=== PATIENT | female | born 1945 | race Caucasian/White ===

== ENCOUNTER 2017-06-24 18:03 | Inpatient (IN) | payer MEDICAID ==
[2017-06-24] MEDS ORDERED: Sodium Chloride 0.9% 1,000 ML IV ONE (19:08)
--- NOTE | 2017-06-24 19:15 | C.PDOC ---
History Of Present Illness Patient is a 71 y/o female who presents to the ED with son complaining of dysuria for the last 1 week with onset of fever and chills. Patient reports to have seen a doctor today and was started on levoquil; fever persisted and patient admitted to feeling weak, prompting visit. Denies any CP, SOB, or diarrhea. Patient took a single dose of levoquin today. No other physical complaints at this time. Time Seen by Provider: 06/24/17 18:54 Chief Complaint (Nursing): Fever History Per: Patient History/Exam Limitations: no limitations Onset/Duration Of Symptoms: Days (1 week) Current Symptoms Are (Timing): Still Present Associated Symptoms: Fever, Chills Recent travel outside of the [place]: No Past Medical History Reviewed: Historical Data, Nursing Documentation, Vital Signs Vital Signs: Last Vital Signs Temp 98.8 F 06/24/17 22:55 Pulse 109 H 06/24/17 22:55 Resp 20 06/24/17 22:55 BP 131/75 06/24/17 22:55 Pulse Ox 93 L 06/24/17 22:55 - Medical History PMH: HTN, Hypercholesterolemia Surgical History: No Surg Hx Family History: States: No Known Family Hx - Social History Hx Tobacco Use: No Hx Alcohol Use: No Hx Substance Use: No - Immunization History Hx Tetanus Toxoid Vaccination: No Hx Influenza Vaccination: No Hx Pneumococcal Vaccination: No Review Of Systems Constitutional: Positive for: Fever, Chills Cardiovascular: Negative for: Chest Pain Respiratory: Negative for: Shortness of Breath Gastrointestinal: Negative for: Diarrhea Genitourinary: Positive for: Dysuria Physical Exam - Physical Exam Appears: Well, Non-toxic, No Acute Distress Skin: Normal Color, Warm, Dry Head: Atraumatic, Normacephalic Oral Mucosa: Moist Chest: Symmetrical Cardiovascular: Rhythm Regular, No Murmur Respiratory: Normal Breath Sounds, No Rales, No Rhonchi, No Wheezing Gastrointestinal/Abdominal: Soft, No Tenderness Back: Normal Inspection, No CVA Tenderness Neurological/Psych: Oriented x3, Normal Speech, Normal Cognition ED Course And Treatment - Laboratory Results Result Diagrams: 06/24/17 19:30 06/24/17 19:30 ECG: Interpreted By Me, Viewed By Me ECG Rhythm: Sinus Tachycardia Interpretation Of ECG: normal intervals, normal axis, no st/t wave abnormalities Rate From EC (bpm) O2 Sat by Pulse Oximetry: 95 Progress Note: EKG, CXR, UA, urine culture, and blood work ordered. Tylenol, zofran, rocephin, and IV fluids administered. Medical Decision Making Medical Decision Making: Patient assessment: UTI with fever. CXR shows increased right interstitial marking in right middle lobe; questionable pneumonia. Case discussed with Dr. Islas who agrees to admit patient to medical surgeon for UTI and pneumonia. Disposition Discussed With : Kyle Islas Doctor Will See Patient In The: Hospital Counseled Patient/Family Regarding: Studies Performed, Diagnosis - Disposition Disposition: HOSPITALIZED Disposition Time: 20:49 Condition: FAIR - Clinical Impression Clinical Impression: Pneumonia, UTI (urinary tract infection) - Scribe Statement The provider has reviewed the documentation as recorded by the Scribe Yael Elizabeth All medical record entries made by the Scribe were at my direction and personally dictated by me. I have reviewed the chart and agree that the record accurately reflects my personal performance of the history, physical exam, medical decision making, and the department course for this patient. I have also personally directed, reviewed, and agree with the discharge instructions and disposition.
[2017-06-24 19:34] LABS: BASO % 0.2 % (0.0-2.0); EOS % 0.1 % (0.0-4.0); HEMOGLOBIN 10.8 g/dL (11.0-16.0); LYMPH # 0.7 K/uL (1.0-4.3); LYMPH % 4.4 % (20.0-40.0); MEAN CELL VOLUME 90.4 fL (81.0-99.0); MEAN CORPUSCULAR HEMOGLOBIN 30.3 pg (27.0-31.0); MEAN CORPUSCULAR HGB CONC 33.6 g/dL (33.0-37.0); MEAN PLATELET VOLUME 10.9 fL (7.2-11.7); MONO # 0.8 K/uL (0.0-0.8); MONO % 5.3 % (0.0-10.0); NEUT # 13.9 K/uL (1.8-7.0); PLATELET COUNT 231 K/uL (130-400); RBC 3.55 Mil/uL (3.80-5.20); RED CELL DISTRIBUTION WIDTH 14.5 % (11.5-14.5); WHITE BLOOD COUNT 15.5 K/uL (4.8-10.8)
[2017-06-24] MEDS ORDERED: cefTRIAXone IV 1 gm in Dextros 50 ML IVPB ONE (19:37)
[2017-06-24] MEDS ORDERED: Sodium Chloride 0.9% 1,000 ML ONE (19:38)
[2017-06-24 19:45] LABS: INR 1.3; PROTHROMBIN TIME 14.8 SECONDS (9.7-12.2)
[2017-06-24 20:10] LABS: ALBUMIN 3.6 g/dL (3.5-5.0); CALCIUM 9.1 mg/dl (8.6-10.4)
[2017-06-24 20:17] LABS: SQUAMOUS EPITHIAL 2 /hpf (0-5); URINE BACTERIA RARE (<OCC); URINE BILIRUBIN NEGATIVE (NEGATIVE); URINE BLOOD 1+ (NEGATIVE); URINE CLARITY Hazy (Clear); URINE COLOR Yellow (YELLOW); URINE GLUCOSE (UA) NORMAL (Normal); URINE LEUKOCYTE ESTERASE 3+ Leu/uL (Negative); URINE PROTEIN 2+ mg/dL (NEGATIVE); URINE UROBILINOGEN NORMAL mg/dL (0.2-1.0)
[2017-06-24] MEDS ORDERED: Azithromycin 500 MG in Sodium Chloride 0.9% 250 ML IVPB STA (20:47)
[2017-06-24 20:49] LABS: BANDS 13 % (0-2); EOSINOPHIL 1 % (0-4); LYMPHOCYTE 11 % (20-40); MONOCYTE 1 % (0-10); NEUTROPHIL 74 % (50-75); TOTAL CELLS COUNTED 100
[2017-06-24 20:50] LABS: ANISOCYTOSIS SLIGHT; HYPOCHROMIC SLIGHT; PLATELET ESTIMATE NORMAL (NORMAL); POIKILOCYTOSIS SLIGHT
[2017-06-24] MEDS ORDERED: Azithromycin 500mg/250ML NS 500 MG/250 ML BAG IVPB ONE (21:01)
[2017-06-24 21:02] LABS: VENOUS BLOOD GAS BASE EXCESS -0.8 mmol/L (0.0-2.0); VENOUS BLOOD GAS PCO2 41 mmHg (40-60); VENOUS BLOOD GAS PO2 38 mm/Hg (30-55); VENOUS BLOOD PH 7.38 (7.32-7.43)
--- NOTE | 2017-06-24 23:06 | CP.PCM.PCO ---
Physician Communication Note - Physician Communication Note Physician Communication Note: Accepted under my service, and transferred to Hospitalist due to NH Jazlyn.
[2017-06-25] MEDS ORDERED: Dextrose 50% SYRINGE Inj (50 ml) IV PRN (00:36)
[2017-06-25] MEDS ORDERED: Glucagon Recombinant 1 mg Inj IM PRN (00:36)
[2017-06-25] MEDS ORDERED: Tetrahydrozoline Opht 0.05% Sol (15 ml) OD PRN (00:42)
--- NOTE | 2017-06-25 00:55 | CP.PCM.HP ---
Addendum entered and electronically signed by Nitin Kramer 06/25/17 03:04: Update to HPI: FamHx: Father - CVA; Mother - DM2, Sister - DM2, Son - DM2 SocialHx: 30 year hx of second hand smoke ( was a smoker), denies alcohol or illicit drug use, lives at home with son Updated to A/P: (1) UTI (urinary tract infection) Assessment and Plan: Dysuria, fever, chills, for past 1 week Initial vitals: temp 103, CA 129 - positive for SIRS with source of infx -> sepsis Monitor on telemetry Labs/Diagnostics: Leukocytosis with bandemia, lactate NORMAL, pH NORMAL UA: 2+ protein, 1+ blood, 3+ leuk esterase, 101 wbc, 10 rbc F/U Blood Cx, Urine Cx F/U procalcitonin Meds: Azithromycin 500mg IVP QD Ceftriaxone 1g IVP QD Phenazopyridine 100mg PO PC Zofran 4mg IVP Q6H PRN for n/v NS @ 100cc/hr Status: Acute Priority: High (2) Pneumonia Assessment and Plan: Denies shortness of breath, chest pain, sputum production, sore throat Lung exam NORMAL Chronic dry cough Weak suspicion for pneumonia at this point Labs/Diagnostics: Leukocytosis with bandemia, lactate NORMAL, pH NORMAL F/U procalcitonin F/U EKG, SYLVIA panel, Blood Cx Imaging: CXR: pending official read * ER attending suspects infiltrate in right middle lobe * Will order CT chest depending on official read Meds: Azithromycin 500mg IVP QD Ceftriaxone 1g IVP QD Status: Acute Priority: High (3) NSTEMI Assessment and Plan: No chest pain or shortness of breath Cardiology consult, Dr Reed. Will follow recs. Labs/Diagnostics: Troponin ELEVATED 0.1290 EKG - NSR without any abnormality F/U serial SYLVIA, EKGs, Lipid Panel, TSH/Free T4 Imaging: F/U ECHO Meds: ASA 324mg PO STAT Plavix 300mg PO STAT Lovenox 90mg SC STAT Crestor 10mg PO STAT Status: Acute Priority: High (4) Insulin dependent diabetes mellitus Assessment and Plan: With diabetic retinopathy with recent left eye retinal surgery Renal function good Accuchcecks ACHS Labs/Diagnostics: F/U HgbA1c, Lipid Panel Meds: Continue home insulin regimen Glargine 10u HS and Glargine 22u AM (confirmed with pharmacy that this is not an unusual scheduling) HOLD home metformin 850mg PO BID Hypoglycemia protocol RISS - medium dose Visine for dry eyes 2/2 to recent eye surgery Status: Chronic Priority: High (5) HTN (hypertension) Assessment and Plan: Continue home med captopril/HCTZ 50/25mg PO QD (substitute with in house enalapril 10mg) Status: Chronic Priority: Medium (6) Anemia Assessment and Plan: Normocytic anemia 2/2 ? UA: 1+ blood Labs/Diagnostics Hgb on admission: 10.8 F/U Iron Studies Status: Acute Priority: High (7) Prophylactic measure Assessment and Plan: Consistent carb vegan diet SCDs Lovenox 90mg SC given ONCE GI prophylaxis not indicated Continue home med ASA 81mg PO QD Status: Acute Priority: Low Original Note: <Nitin Kramer - Last Filed: 06/25/17 00:50> History of Present Illness - History of Present Illness History of Present Illness: CC: "I have a UTI" HPI: Mrs Pascal is a 72 year old egyption female with a past medical history of insulin dependent DM2, diabetic retinopathy, glaucoma, HTN, OA, who presents to [facility] ER because she's had dysuria for the past 1 week. Associated symptoms include nausea, lethargy, fever, chills, and loss of appetite. She went to a doctor yesterday morning who prescribed her abx, which she took. However, later in the day her sons were concerned as she was very weak and brought her in to [facility] ER. Initial vitals in the ED were confirmatory for sepsis. She denied chest pain, shortness of breath, diarrhea, focal deficits, bleeding, suprapubic pain, abdominal pain. PMD: Dr Jose Marcos ([place]) PMHx: Insulin dependent DM2, diabetic retinopathy, glaucoma, HTN, OA b/l knees PSHx: Cataracts surgery left eye 2018, retinal surgery left eye 2018 Allergies: NKA Home meds: Glargine 10u SQ HS, Glargine 22u SQ QD, Captopril/HCTZ 50/25mg PO QD , ASA 81mg PO QD, MV 1 tab PO QD, Vit B12 500mcg PO QD, Diclofenac 75mg PO BID Code Status: Full Code Health Care Proxy: SonDenis, Present on Admission - Present on Admission Any Indicators Present on Admission: No Review of Systems - Constitutional Constitutional: Chills, Fever, Headache, Weakness. absent: Night Sweats, Weight Loss - EENT Eyes: absent: Change in Vision - Cardiovascular Cardiovascular: absent: Chest Pain, Chest Pain at Rest, Diaphoresis, Dyspnea on Exertion, Lightheadedness, Pedal Edema - Respiratory Respiratory: absent: Cough, Hemoptysis, Dyspnea on Exertion, Wheezing - Gastrointestinal Gastrointestinal: absent: Abdominal Pain, Bloating, Constipation, Diarrhea - Genitourinary Genitourinary: Change in Urinary Stream, Dysuria, Hematuria, Urinary Frequency. absent: Flank Pain - Musculoskeletal Musculoskeletal: absent: Arthralgias - Neurological Neurological: absent: Confusion Past Patient History - Past Social History Smoking Status: Never Smoked - CARDIAC Hx Hypercholesterolemia: Yes Hx Hypertension: Yes - ENDOCRINE/METABOLIC Hx Diabetes Mellitus Type 2: Yes - PSYCHIATRIC Hx Substance Use: No - SURGICAL HISTORY Hx Surgeries: No Meds Allergies/Adverse Reactions: Allergies Allergy/AdvReac Type Severity Reaction Status Date / Time No Known Allergies Allergy Unverified 06/24/17 18:13 Physical Exam - Constitutional Appears: Well, No Acute Distress Additional comments: Patient was cold and wanted to stay underneath the blanket - Head Exam Head Exam: ATRAUMATIC, NORMAL INSPECTION - Eye Exam Eye Exam: EOMI Pupil Exam: PERRL - ENT Exam ENT Exam: Mucous Membranes Moist - Neck Exam Neck exam: Positive for: Normal Inspection. Negative for: Lymphadenopathy, Tenderness - Respiratory Exam Respiratory Exam: Clear to Auscultation Bilateral, NORMAL BREATHING PATTERN. absent: Rales, Rhonchi, Wheezes - Cardiovascular Exam Cardiovascular Exam: REGULAR RHYTHM, +S1, +S2. absent: Bradycardia, Tachycardia , JVD, Systolic Murmur - GI/Abdominal Exam GI & Abdominal Exam: Normal Bowel Sounds, Soft. absent: Distended, Firm, Guarding, Hernia, Tenderness - Extremities Exam Extremities exam: Positive for: normal capillary refill, normal inspection, pedal pulses present. Negative for: calf tenderness, pedal edema, tenderness - Back Exam Back exam: absent: CVA tenderness (L), CVA tenderness (R) - Neurological Exam Neurological exam: Alert, Oriented x3 - Skin Skin Exam: Intact, Normal Color, Warm Results - Vital Signs Recent Vital Signs: Last Vital Signs Temp 98.2 F 06/24/17 23:32 Pulse 111 H 06/24/17 23:32 Resp 20 06/24/17 23:32 BP 122/74 06/24/17 23:32 Pulse Ox 98 06/24/17 23:32 - Labs Result Diagrams: 06/24/17 19:30 06/24/17 19:30 Labs: Laboratory Results - last 24 hr 06/24/17 06/24/17 06/24/17 19:30 19:30 19:30 WBC 15.5 H RBC 3.55 L Hgb 10.8 L Hct 32.1 L MCV 90.4 MCH 30.3 MCHC 33.6 RDW 14.5 Plt Count 231 MPV 10.9 Neut % (Auto) 90.0 H Lymph % (Auto) 4.4 L [place] % (Auto) 5.3 Eos % (Auto) 0.1 Baso % (Auto) 0.2 Neut # (Auto) 13.9 H Lymph # (Auto) 0.7 L [place] # (Auto) 0.8 Eos # (Auto) 0.0 Baso # (Auto) 0.0 Neutrophils % (Manual) 74 Band Neutrophils % 13 H* Lymphocytes % (Manual) 11 L Monocytes % (Manual) 1 Eosinophils % (Manual) 1 Platelet Estimate Normal Hypochromasia (manual) Slight Poikilocytosis (manual Slight Anisocytosis (manual) Slight PT 14.8 H INR 1.3 APTT 27 pO2 VBG pH VBG pCO2 VBG HCO3 VBG Total CO2 VBG O2 Sat (Calc) VBG Base Excess VBG Potassium Glucose Lactate Sodium 135 Potassium 4.2 Chloride 97 L Carbon Dioxide 26 Anion Gap 16 BUN 17 Creatinine 1.1 Est GFR ( Amer) 59 Est GFR (Non-Af Amer) 49 Random Glucose 153 H Calcium 9.1 Total Bilirubin 1.4 H AST 38 H ALT 22 Alkaline Phosphatase 94 Total Protein 7.3 Albumin 3.6 Globulin 3.6 Albumin/Globulin Ratio 1.0 Venous Blood Potassium Urine Color Urine Clarity Urine pH Ur Specific [place] Urine Protein Urine Glucose (UA) Urine Ketones Urine Blood Urine Nitrate Urine Bilirubin Urine Urobilinogen Ur Leukocyte Esterase Urine WBC (Auto) Urine RBC (Auto) Ur Squamous Epith Cells Urine Bacteria Urine Yeast (Budding) 06/24/17 06/24/17 19:31 20:59 WBC RBC Hgb Hct MCV MCH MCHC RDW Plt Count MPV Neut % (Auto) Lymph % (Auto) [place] % (Auto) Eos % (Auto) Baso % (Auto) Neut # (Auto) Lymph # (Auto) [place] # (Auto) Eos # (Auto) Baso # (Auto) Neutrophils % (Manual) Band Neutrophils % Lymphocytes % (Manual) Monocytes % (Manual) Eosinophils % (Manual) Platelet Estimate Hypochromasia (manual) Poikilocytosis (manual Anisocytosis (manual) PT INR APTT pO2 38 VBG pH 7.38 VBG pCO2 41 VBG HCO3 23.6 VBG Total CO2 25.6 VBG O2 Sat (Calc) 78.2 H VBG Base Excess -0.8 L VBG Potassium 3.4 L Glucose 169 H Lactate 1.8 Sodium 134.0 Potassium Chloride 103.0 Carbon Dioxide Anion Gap BUN Creatinine Est GFR ( Amer) Est GFR (Non-Af Amer) Random Glucose Calcium Total Bilirubin AST ALT Alkaline Phosphatase Total Protein Albumin Globulin Albumin/Globulin Ratio Venous Blood Potassium 3.4 L Urine Color Yellow Urine Clarity Hazy Urine pH 7.0 Ur Specific [place] 1.008 Urine Protein 2+ H Urine Glucose (UA) Normal Urine Ketones Negative Urine Blood 1+ H Urine Nitrate Negative Urine Bilirubin Negative Urine Urobilinogen Normal Ur Leukocyte Esterase 3+ H Urine WBC (Auto) 101 H Urine RBC (Auto) 10 H Ur Squamous Epith Cells 2 Urine Bacteria Rare Urine Yeast (Budding) Occ H Assessment & Plan (1) UTI (urinary tract infection) Assessment and Plan: Dysuria, fever, chills, for past 1 week Initial vitals: temp 103, CA 129 - positive for SIRS with source of infx -> sepsis Monitor on telemetry Labs/Diagnostics: Leukocytosis with bandemia, lactate NORMAL, pH NORMAL UA: 2+ protein, 1+ blood, 3+ leuk esterase, 101 wbc, 10 rbc F/U Blood Cx, Urine Cx F/U procalcitonin Meds: Azithromycin 500mg IVP QD Ceftriaxone 1g IVP QD Phenazopyridine 100mg PO PC Zofran 4mg IVP Q6H PRN for n/v NS @ 100cc/hr Status: Acute Priority: High (2) Pneumonia Assessment and Plan: Denies shortness of breath, chest pain, sputum production, sore throat Lung exam NORMAL Chronic dry cough Weak suspicion for pneumonia at this point Labs/Diagnostics: Leukocytosis with bandemia, lactate NORMAL, pH NORMAL F/U procalcitonin F/U EKG, SYLVIA panel, Blood Cx Imaging: CXR: pending official read * ER attending suspects infiltrate in right middle lobe * Will order CT chest depending on official read Meds: Azithromycin 500mg IVP QD Ceftriaxone 1g IVP QD Status: Acute Priority: High (3) Insulin dependent diabetes mellitus Assessment and Plan: With diabetic retinopathy with recent left eye retinal surgery Renal function good Accuchcecks ACHS Labs/Diagnostics: F/U HgbA1c, Lipid Panel Meds: Continue home insulin regimen Glargine 10u HS and Glargine 22u AM (confirmed with pharmacy that this is not an unusual scheduling) HOLD home metformin 850mg PO BID Hypoglycemia protocol RISS - medium dose Visine for dry eyes 2/2 to recent eye surgery Status: Chronic Priority: High (4) HTN (hypertension) Assessment and Plan: Continue home med captopril/HCTZ 50/25mg PO QD (substitute with in house enalapril 10mg) Status: Chronic Priority: Medium (5) Prophylactic measure Assessment and Plan: Consistent carb vegan diet SCDs AO contraindicated 2/2 to 1+ blood on UA GI prophylaxis not indicated Continue home med ASA 81mg PO QD Status: Acute Priority: Low <Clive Beckham - Last Filed: 06/25/17 06:29> Results - Vital Signs Recent Vital Signs: Last Vital Signs Temp 97.3 F L 06/25/17 04:00 Pulse 94 H 06/25/17 04:00 Resp 20 06/25/17 04:00 BP 158/77 H 06/25/17 04:00 Pulse Ox 96 06/25/17 04:00 - Labs Result Diagrams: 06/24/17 19:30 06/24/17 19:30 Labs: Laboratory Results - last 24 hr 06/24/17 06/24/17 06/24/17 19:30 19:30 19:30 WBC 15.5 H RBC 3.55 L Hgb 10.8 L Hct 32.1 L MCV 90.4 MCH 30.3 MCHC 33.6 RDW 14.5 Plt Count 231 MPV 10.9 Neut % (Auto) 90.0 H Lymph % (Auto) 4.4 L [place] % (Auto) 5.3 Eos % (Auto) 0.1 Baso % (Auto) 0.2 Neut # (Auto) 13.9 H Lymph # (Auto) 0.7 L [place] # (Auto) 0.8 Eos # (Auto) 0.0 Baso # (Auto) 0.0 Neutrophils % (Manual) 74 Band Neutrophils % 13 H* Lymphocytes % (Manual) 11 L Monocytes % (Manual) 1 Eosinophils % (Manual) 1 Platelet Estimate Normal Hypochromasia (manual) Slight Poikilocytosis (manual Slight Anisocytosis (manual) Slight PT 14.8 H INR 1.3 APTT 27 pO2 VBG pH VBG pCO2 VBG HCO3 VBG Total CO2 VBG O2 Sat (Calc) VBG Base Excess VBG Potassium Glucose Lactate Sodium 135 Potassium 4.2 Chloride 97 L Carbon Dioxide 26 Anion Gap 16 BUN 17 Creatinine 1.1 Est GFR ( Amer) 59 Est GFR (Non-Af Amer) 49 POC Glucose (mg/dL) Random Glucose 153 H Calcium 9.1 Total Bilirubin 1.4 H AST 38 H ALT 22 Alkaline Phosphatase 94 Total Creatine Kinase CK-MB (Mass) Troponin I Total Protein 7.3 Albumin 3.6 Globulin 3.6 Albumin/Globulin Ratio 1.0 Venous Blood Potassium Urine Color Urine Clarity Urine pH Ur Specific [place] Urine Protein Urine Glucose (UA) Urine Ketones Urine Blood Urine Nitrate Urine Bilirubin Urine Urobilinogen Ur Leukocyte Esterase Urine WBC (Auto) Urine RBC (Auto) Ur Squamous Epith Cells Urine Bacteria Urine Yeast (Budding) 06/24/17 06/24/17 06/25/17 19:31 20:59 01:01 WBC RBC Hgb Hct MCV MCH MCHC RDW Plt Count MPV Neut % (Auto) Lymph % (Auto) [place] % (Auto) Eos % (Auto) Baso % (Auto) Neut # (Auto) Lymph # (Auto) [place] # (Auto) Eos # (Auto) Baso # (Auto) Neutrophils % (Manual) Band Neutrophils % Lymphocytes % (Manual) Monocytes % (Manual) Eosinophils % (Manual) Platelet Estimate Hypochromasia (manual) Poikilocytosis (manual Anisocytosis (manual) PT INR APTT pO2 38 VBG pH 7.38 VBG pCO2 41 VBG HCO3 23.6 VBG Total CO2 25.6 VBG O2 Sat (Calc) 78.2 H VBG Base Excess -0.8 L VBG Potassium 3.4 L Glucose 169 H Lactate 1.8 Sodium 134.0 Potassium Chloride 103.0 Carbon Dioxide Anion Gap BUN Creatinine Est GFR ( Amer) Est GFR (Non-Af Amer) POC Glucose (mg/dL) Random Glucose Calcium Total Bilirubin AST ALT Alkaline Phosphatase Total Creatine Kinase 277 H CK-MB (Mass) 4.19 H Troponin I 0.1290 H* Total Protein Albumin Globulin Albumin/Globulin Ratio Venous Blood Potassium 3.4 L Urine Color Yellow Urine Clarity Hazy Urine pH 7.0 Ur Specific [place] 1.008 Urine Protein 2+ H Urine Glucose (UA) Normal Urine Ketones Negative Urine Blood 1+ H Urine Nitrate Negative Urine Bilirubin Negative Urine Urobilinogen Normal Ur Leukocyte Esterase 3+ H Urine WBC (Auto) 101 H Urine RBC (Auto) 10 H Ur Squamous Epith Cells 2 Urine Bacteria Rare Urine Yeast (Budding) Occ H 06/25/17 06:16 WBC RBC Hgb Hct MCV MCH MCHC RDW Plt Count MPV Neut % (Auto) Lymph % (Auto) [place] % (Auto) Eos % (Auto) Baso % (Auto) Neut # (Auto) Lymph # (Auto) [place] # (Auto) Eos # (Auto) Baso # (Auto) Neutrophils % (Manual) Band Neutrophils % Lymphocytes % (Manual) Monocytes % (Manual) Eosinophils % (Manual) Platelet Estimate Hypochromasia (manual) Poikilocytosis (manual Anisocytosis (manual) PT INR APTT pO2 VBG pH VBG pCO2 VBG HCO3 VBG Total CO2 VBG O2 Sat (Calc) VBG Base Excess VBG Potassium Glucose Lactate Sodium Potassium Chloride Carbon Dioxide Anion Gap BUN Creatinine Est GFR ( Amer) Est GFR (Non-Af Amer) POC Glucose (mg/dL) 140 H Random Glucose Calcium Total Bilirubin AST ALT Alkaline Phosphatase Total Creatine Kinase CK-MB (Mass) Troponin I Total Protein Albumin Globulin Albumin/Globulin Ratio Venous Blood Potassium Urine Color Urine Clarity Urine pH Ur Specific [place] Urine Protein Urine Glucose (UA) Urine Ketones Urine Blood Urine Nitrate Urine Bilirubin Urine Urobilinogen Ur Leukocyte Esterase Urine WBC (Auto) Urine RBC (Auto) Ur Squamous Epith Cells Urine Bacteria Urine Yeast (Budding) Assessment & Plan - Date & Time Date: 06/25/17 (I have seen and examined the patient. I agree with the findings and plan of care as documented by Dr. Kramer. Patient initially admitted by senior financial consultant physician, but realized due to insurance status, physician decided to transfer. Patient on general medical floor without completed orders. Patient seen to have positive SIRS criteria, UTI/pneumonia, and NSTEMI. Consult to cardio. Plavix and heparin given. ROMIx3 with EKG. Aspirin and statin. Rocephin and azithro. Urine, sputum, and blood cultures. Monitor vitals closely, transfer to ICU if necessary. Monitor for acute changes.) Time: 06:25 Attending/Attestation - Attestation I have personally seen and examined this patient.: Yes I have fully participated in the care of the patient.: Yes I have reviewed all pertinent clinical information: Yes
[2017-06-25 01:34] LABS: CK-MB 4.19 ng/mL (0.0-3.38); TROPONIN I 0.129 ng/mL (0.00-0.120)
[2017-06-25] MEDS ORDERED: Enoxaparin 80 mg Syringe SC STA (03:03)
[2017-06-25] MEDS ORDERED: Enoxaparin 100 mg Syringe SC STA (03:15)
[2017-06-25] MEDS: Sodium Chloride 0.9% 1,000 ML IV SCH ×2 (03:16→17:13)
[2017-06-25] MEDS: (Novolin R) Insulin Human Regular 100 units/ml vial SC SCH ×4 (07:10→21:05)
--- NOTE | 2017-06-25 08:00 | CP.PCM.PN ---
Subjective - Date & Time of Evaluation Date of Evaluation: 06/25/17 Objective - Vital Signs/Intake and Output Vital Signs (last 24 hours): Temp Pulse Resp BP Pulse Ox 97.3 F L 94 H 20 158/77 H 96 06/25/17 04:00 06/25/17 04:00 06/25/17 04:00 06/25/17 04:00 06/25/17 04:00 Intake and Output: 06/25/17 06/25/17 06:59 18:59 Intake Total 700 Balance 700 - Medications Medications: Current Medications Aspirin (Aspirin Chewable) 81 mg PO DAILY [facility] Dextrose (Dextrose 50% Inj) 0 ml IV STAT PRN; Protocol PRN Reason: Hypoglycemia Protocol Dextrose (Glutose 15) 0 gm PO ONCE PRN; Protocol PRN Reason: Hypoglycemia Protocol Enalapril Maleate (Vasotec) 10 mg PO DAILY [facility] Glucagon (Glucagen Diagnostic Kit) 0 mg IM STAT PRN; Protocol PRN Reason: Hypoglycemia Protocol Azithromycin 500 mg/ Sodium (Chloride) 250 mls @ 250 mls/hr IVPB DAILY [facility] PRN Reason: Protocol Ceftriaxone Sodium 1 gm/ (Sodium Chloride) 100 mls @ 100 mls/hr IVPB DAILY [facility] PRN Reason: Protocol Dextrose (Dextrose 5% In Water 1000 Ml) 1,000 mls @ 0 mls/hr IV .Q0M PRN; Protocol; Per Protocol PRN Reason: Hypoglycemia Protocol Sodium Chloride (Sodium Chloride 0.9%) 1,000 mls @ 100 mls/hr IV .Q10H [facility] Last Admin: 06/25/17 03:16 Dose: 100 mls/hr Insulin Glargine (Lantus) 10 unit SC HS [facility] Insulin Glargine (Lantus) 22 unit SC DAILY [facility] Insulin Human Regular (Novolin R) 0 unit SC ACHS [facility] PRN Reason: Protocol Last Admin: 06/25/17 07:10 Dose: Not Given Ondansetron HCl (Zofran Inj) 4 mg IVP Q6 PRN PRN Reason: Nausea/Vomiting Phenazopyridine HCl (Pyridium) 100 mg PO PC [facility] Saccharomyces Boulardii (Florastor) 250 mg PO BID [facility] Tetrahydrozoline HCl/Zinc Sulfate (Visine 0.05% Opht Soln) 5 ml OD Q6H PRN PRN Reason: Dry eyes - Labs Labs: 06/24/17 19:30 06/24/17 19:30 PT 14.8 SECONDS (9.7-12.2) H 06/24/17 19:30 INR 1.3 06/24/17 19:30 APTT 27 SECONDS (21-34) 06/24/17 19:30
--- NOTE | 2017-06-25 08:30 | CP.PCM.PN ---
Subjective - Date & Time of Evaluation Date of Evaluation: 06/25/17 Time of Evaluation: 08:20 - Subjective Subjective: Patient was seen and examined by me at 8:20 am. Her son Denis was present at bedside. Patient was ok with family present The son helped with translation. The patient reported feeling better since yesterday. Also family reported she looked better to them as well. They explain to me that for one week was having UTI like symptoms and yesterday family reported she had fever as well as chills. The patient on labwork had an elevated WBC as well as bandemia. The suspected source is probable UTI and perhaps a pneumonia. The blood and urine culture is still pending at this time. She will need to continue with the IV abx. IVF are being continued. The troponin was borderling positive, I looked at several of the EKGs and there did not seem to be any obvious areas of ST elevation or depression. Probably this positive troponin is from the sepsis, nevertheless we will aquire more cardiac enzymes. A theraputic dose of Lovenox was already administed. She was placed on ASA and statin. Ordering also a CTA to assess for PE. Objective - Vital Signs/Intake and Output Vital Signs (last 24 hours): Temp Pulse Resp BP Pulse Ox 97.2 F L 87 20 145/76 97 06/25/17 07:45 06/25/17 07:45 06/25/17 07:45 06/25/17 07:45 06/25/17 07:45 Intake and Output: 06/25/17 06/25/17 06:59 18:59 Intake Total 700 Balance 700 - Medications Medications: Current Medications Aspirin (Aspirin Chewable) 81 mg PO DAILY [facility] Dextrose (Dextrose 50% Inj) 0 ml IV STAT PRN; Protocol PRN Reason: Hypoglycemia Protocol Dextrose (Glutose 15) 0 gm PO ONCE PRN; Protocol PRN Reason: Hypoglycemia Protocol Enalapril Maleate (Vasotec) 10 mg PO DAILY [facility] Glucagon (Glucagen Diagnostic Kit) 0 mg IM STAT PRN; Protocol PRN Reason: Hypoglycemia Protocol Azithromycin 500 mg/ Sodium (Chloride) 250 mls @ 250 mls/hr IVPB DAILY [facility] PRN Reason: Protocol Ceftriaxone Sodium 1 gm/ (Sodium Chloride) 100 mls @ 100 mls/hr IVPB DAILY [facility] PRN Reason: Protocol Dextrose (Dextrose 5% In Water 1000 Ml) 1,000 mls @ 0 mls/hr IV .Q0M PRN; Protocol; Per Protocol PRN Reason: Hypoglycemia Protocol Sodium Chloride (Sodium Chloride 0.9%) 1,000 mls @ 100 mls/hr IV .Q10H [facility] Last Admin: 06/25/17 03:16 Dose: 100 mls/hr Insulin Glargine (Lantus) 10 unit SC HS [facility] Insulin Glargine (Lantus) 22 unit SC DAILY [facility] Insulin Human Regular (Novolin R) 0 unit SC ACHS [facility] PRN Reason: Protocol Last Admin: 06/25/17 07:10 Dose: Not Given Ondansetron HCl (Zofran Inj) 4 mg IVP Q6 PRN PRN Reason: Nausea/Vomiting Phenazopyridine HCl (Pyridium) 100 mg PO PC [facility] Pneumococcal Polyvalent Vaccine (Pneumovax 23 Vaccine) 0.5 ml IM .ONCE ONE Stop: 06/26/17 10:01 Saccharomyces Boulardii (Florastor) 250 mg PO BID [facility] Tetrahydrozoline HCl/Zinc Sulfate (Visine 0.05% Opht Soln) 5 ml OD Q6H PRN PRN Reason: Dry eyes - Labs Labs: 06/24/17 19:30 06/24/17 19:30 PT 14.8 SECONDS (9.7-12.2) H 06/24/17 19:30 INR 1.3 06/24/17 19:30 APTT 27 SECONDS (21-34) 06/24/17 19:30 - Constitutional Appears: No Acute Distress - Head Exam Head Exam: NORMAL INSPECTION, NORMOCEPHALIC - Eye Exam Eye Exam: EOMI, Normal appearance - ENT Exam ENT Exam: Mucous Membranes Moist - Respiratory Exam Respiratory Exam: Clear to Ausculation Bilateral, NORMAL BREATHING PATTERN - Cardiovascular Exam Cardiovascular Exam: REGULAR RHYTHM - GI/Abdominal Exam GI & Abdominal Exam: Soft, Normal Bowel Sounds. absent: Tenderness - Neurological Exam Neurological Exam: Alert, Awake, Oriented x3 Neuro motor strength exam: Left Upper Extremity: 5, Right Upper Extremity: 5 - Psychiatric Exam Psychiatric exam: Depressed, Flat Affect - Skin Skin Exam: Normal Color, Warm Assessment and Plan - Assessment and Plan (Free Text) Assessment: Sepsis from UTI: 06/25: Yesterday night had documented fever and reported chills. Currently on IV rocpehin and azithromycin. The urine and blood cultures are pending at this time. The patient was placed on IVF, we will check a CXRAY to follow in case she develops fluid overload. Pending pro-calcitonin, The lactic acid level was ok. Suspect Pneumonia: 06/25: Continue with the IV abx, she feels better Checking CTA of the lung and for PE Borderline positive troponin: 06/25: She has had several 12 lead EKGs. At this moment no elevations or depressions of ST segments Will follow more troponins, already recived lovenox and statin, and ASA The borderline elevation may be secondary to the sepsis. We have ordered also a CTA to assess for PE. History of HTN 06/25: For now hold off on the HCTZ, she is still on ACEI History of DM 06/25: Will follow accuchecks and make changes as needed Currently on SSI and also lantus
[2017-06-25] MEDS ORDERED: Iodixanol 320 MG/ML 100 ML BOTTLE IV ONE (08:42)
[2017-06-25 08:43] LABS: IRON < 10 ug/dL (37-170)
[2017-06-25 08:58] LABS: TOTAL IRON BINDING CAPACITY 259 ug/dL (250-450)
[2017-06-25 09:02] LABS: CK-MB 1.11 ng/mL (0.0-3.38); TROPONIN I 0.228 ng/mL (0.00-0.120)
[2017-06-25] MEDS: Saccharomyces Boulardi 250 mg Cap PO SCH ×2 (09:22→17:54)
[2017-06-25] MEDS: (Lantus) Insulin Glargine, Recombinant SC SCH ×2 (09:23→21:32)
--- NOTE | 2017-06-25 10:02 | CT ---
PROCEDURE: CT Chest with contrast (Pulmonary Angiogram) HISTORY: Rule out PE. COMPARISON: None available. TECHNIQUE: Axial computed tomography images were obtained of the chest in the pulmonary arterial phase of enhancement. Coronal and sagittal reformatted images were created and reviewed. Intravenous contrast dose: 100 cc Visipaque 320 contrast material Radiation dose: Total exam DLP = 518.32 mGy-cm. This CT exam was performed using one or more of the following dose reduction techniques: Automated exposure control, adjustment of the mA and/or kV according to patient size, and/or use of iterative reconstruction technique. FINDINGS: PULMONARY ARTERIES: Visualized portions of the pulmonary trunk, right and left main, lobar, segmental and proximal subsegmental branches of the pulmonary arteries are opacified with no definitive filling defects seen to suggest acute pulmonary embolus. Pulmonary trunk measures approximately 3.06 cm. AORTA: The ascending thoracic aorta measures approximately 3.74 cm and descending thoracic aorta measures approximately 2.7 cm. LUNGS: Minor atelectasis seen in both lung bases including the lingular region PLEURAL SPACES: Unremarkable. . . No effusion or pneumothorax. HEART: Heart is mildly enlarged. . No significant pericardial effusion. LYMPH NODES: Several of small mediastinal and bilateral hilar lymph nodes are present. BONES, CHEST WALL: Multilevel degenerative spondylosis of the thoracic spine. No acute compression fractures no retropulsed fragments. OTHER FINDINGS: There is a small hiatal hernia. Note is made of a large approximately 3.5 AP by 3.7 trans by 2.8 5 cc low-attenuation lesion within the superior aspect right lobe liver bordering the upper lateral and superior liver surfaces that is of uncertain etiology though exhibits Hounsfield units in the low 20s. This could represent a slightly hyperdense cyst or possibly hemangioma. Consider followup hepatic ultrasound or three-phase CT scan of the liver for further evaluation. Note is also made of a small approximately 7 mm rounded low-attenuation within the lateral aspect of the cortex upper pole left kidney which exhibits Hounsfield units in the negative cm consistent with a angiomyelolipoma IMPRESSION: No evidence of acute central pulmonary embolus. Mild bibasilar atelectasis. 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 Large low-attenuation masslike lesion within the right lobe liver that could represent a hyperdense cyst. Consider follow-up ultrasound and/or three-phase CT scan of the liver for further evaluation.
[2017-06-25] MEDS: Azithromycin 500 MG in Sodium Chloride 0.9% 250 ML IVPB SCH (10:22)
--- NOTE | 2017-06-25 11:04 | CP.PCM.CON ---
History of Present Illness - History of Present Illness History of Present Illness: events noted. Patient admitted with fever weakness pneumonia UTI. "Routine labs" drawn revealing slightly elevated troponin. The patient denies chest pain or dyspnea. Troponin likely not due to coronary occlusion. Recommend treatment for sepsis. Past Patient History - Past Medical History & Family History Past Medical History?: Yes - Past Social History Smoking Status: Never Smoked - CARDIAC Hx Hypercholesterolemia: Yes Hx Hypertension: Yes - PULMONARY Hx Respiratory Disorders: No - NEUROLOGICAL Hx Neurological Disorder: No - HEENT Hx HEENT Problems: No - RENAL Hx Chronic Kidney Disease: No - ENDOCRINE/METABOLIC Hx Diabetes Mellitus Type 2: Yes - HEMATOLOGICAL/ONCOLOGICAL Hx Blood Disorders: No - INTEGUMENTARY Hx Dermatological Problems: No - MUSCULOSKELETAL/RHEUMATOLOGICAL Hx Musculoskeletal Disorders: No Hx Falls: No - GASTROINTESTINAL Hx Gastrointestinal Disorders: No - GENITOURINARY/GYNECOLOGICAL Hx Genitourinary Disorders: No - PSYCHIATRIC Hx Substance Use: No - SURGICAL HISTORY Hx Surgeries: No - ANESTHESIA Hx Anesthesia: No Meds Allergies/Adverse Reactions: Allergies Allergy/AdvReac Type Severity Reaction Status Date / Time No Known Allergies Allergy Unverified 06/24/17 18:13 - Medications Medications: Current Medications Aspirin (Aspirin Chewable) 81 mg PO DAILY [facility] Last Admin: 06/25/17 09:24 Dose: Not Given Dextrose (Dextrose 50% Inj) 0 ml IV STAT PRN; Protocol PRN Reason: Hypoglycemia Protocol Dextrose (Glutose 15) 0 gm PO ONCE PRN; Protocol PRN Reason: Hypoglycemia Protocol Enalapril Maleate (Vasotec) 10 mg PO DAILY [facility] Last Admin: 06/25/17 09:22 Dose: 10 mg Glucagon (Glucagen Diagnostic Kit) 0 mg IM STAT PRN; Protocol PRN Reason: Hypoglycemia Protocol Azithromycin 500 mg/ Sodium (Chloride) 250 mls @ 250 mls/hr IVPB DAILY [facility] PRN Reason: Protocol Last Admin: 06/25/17 10:22 Dose: 250 mls/hr Ceftriaxone Sodium 1 gm/ (Sodium Chloride) 100 mls @ 100 mls/hr IVPB DAILY [facility] PRN Reason: Protocol Last Admin: 06/25/17 09:23 Dose: 100 mls/hr Dextrose (Dextrose 5% In Water 1000 Ml) 1,000 mls @ 0 mls/hr IV .Q0M PRN; Protocol; Per Protocol PRN Reason: Hypoglycemia Protocol Sodium Chloride (Sodium Chloride 0.9%) 1,000 mls @ 100 mls/hr IV .Q10H [facility] Last Admin: 06/25/17 03:16 Dose: 100 mls/hr Insulin Glargine (Lantus) 10 unit SC HS [facility] Insulin Glargine (Lantus) 22 unit SC DAILY [facility] Last Admin: 06/25/17 09:23 Dose: 22 units Insulin Human Regular (Novolin R) 0 unit SC ACHS [facility] PRN Reason: Protocol Last Admin: 06/25/17 07:10 Dose: Not Given Ondansetron HCl (Zofran Inj) 4 mg IVP Q6 PRN PRN Reason: Nausea/Vomiting Phenazopyridine HCl (Pyridium) 100 mg PO PC [facility] Last Admin: 06/25/17 08:52 Dose: 100 mg Pneumococcal Polyvalent Vaccine (Pneumovax 23 Vaccine) 0.5 ml IM .ONCE ONE Stop: 06/26/17 10:01 Saccharomyces Boulardii (Florastor) 250 mg PO BID [facility] Last Admin: 06/25/17 09:22 Dose: 250 mg Tetrahydrozoline HCl/Zinc Sulfate (Visine 0.05% Opht Soln) 5 ml OD Q6H PRN PRN Reason: Dry eyes Results - Vital Signs Recent Vital Signs: Last Vital Signs Temp 97.2 F L 06/25/17 07:45 Pulse 87 06/25/17 08:00 Resp 20 06/25/17 07:45 BP 145/76 06/25/17 09:22 Pulse Ox 97 06/25/17 07:45 - Labs Result Diagrams: 06/24/17 19:30 06/24/17 19:30 Labs: Laboratory Results - last 24 hr 06/24/17 06/24/17 06/24/17 19:30 19:30 19:30 WBC 15.5 H RBC 3.55 L Hgb 10.8 L Hct 32.1 L MCV 90.4 MCH 30.3 MCHC 33.6 RDW 14.5 Plt Count 231 MPV 10.9 Neut % (Auto) 90.0 H Lymph % (Auto) 4.4 L [place] % (Auto) 5.3 Eos % (Auto) 0.1 Baso % (Auto) 0.2 Neut # (Auto) 13.9 H Lymph # (Auto) 0.7 L [place] # (Auto) 0.8 Eos # (Auto) 0.0 Baso # (Auto) 0.0 Neutrophils % (Manual) 74 Band Neutrophils % 13 H* Lymphocytes % (Manual) 11 L Monocytes % (Manual) 1 Eosinophils % (Manual) 1 Platelet Estimate Normal Hypochromasia (manual) Slight Poikilocytosis (manual Slight Anisocytosis (manual) Slight PT 14.8 H INR 1.3 APTT 27 pO2 VBG pH VBG pCO2 VBG HCO3 VBG Total CO2 VBG O2 Sat (Calc) VBG Base Excess VBG Potassium Glucose Lactate Sodium 135 Potassium 4.2 Chloride 97 L Carbon Dioxide 26 Anion Gap 16 BUN 17 Creatinine 1.1 Est GFR ( Amer) 59 Est GFR (Non-Af Amer) 49 POC Glucose (mg/dL) Random Glucose 153 H Calcium 9.1 Iron TIBC % Saturation Total Bilirubin 1.4 H AST 38 H ALT 22 Alkaline Phosphatase 94 Total Creatine Kinase CK-MB (Mass) Troponin I NT-Pro-B Natriuret Pep Total Protein 7.3 Albumin 3.6 Globulin 3.6 Albumin/Globulin Ratio 1.0 Venous Blood Potassium Urine Color Urine Clarity Urine pH Ur Specific [place] Urine Protein Urine Glucose (UA) Urine Ketones Urine Blood Urine Nitrate Urine Bilirubin Urine Urobilinogen Ur Leukocyte Esterase Urine WBC (Auto) Urine RBC (Auto) Ur Squamous Epith Cells Urine Bacteria Urine Yeast (Budding) 06/24/17 06/24/17 06/25/17 19:31 20:59 01:01 WBC RBC Hgb Hct MCV MCH MCHC RDW Plt Count MPV Neut % (Auto) Lymph % (Auto) [place] % (Auto) Eos % (Auto) Baso % (Auto) Neut # (Auto) Lymph # (Auto) [place] # (Auto) Eos # (Auto) Baso # (Auto) Neutrophils % (Manual) Band Neutrophils % Lymphocytes % (Manual) Monocytes % (Manual) Eosinophils % (Manual) Platelet Estimate Hypochromasia (manual) Poikilocytosis (manual Anisocytosis (manual) PT INR APTT pO2 38 VBG pH 7.38 VBG pCO2 41 VBG HCO3 23.6 VBG Total CO2 25.6 VBG O2 Sat (Calc) 78.2 H VBG Base Excess -0.8 L VBG Potassium 3.4 L Glucose 169 H Lactate 1.8 Sodium 134.0 Potassium Chloride 103.0 Carbon Dioxide Anion Gap BUN Creatinine Est GFR ( Amer) Est GFR (Non-Af Amer) POC Glucose (mg/dL) Random Glucose Calcium Iron TIBC % Saturation Total Bilirubin AST ALT Alkaline Phosphatase Total Creatine Kinase 277 H CK-MB (Mass) 4.19 H Troponin I 0.1290 H* NT-Pro-B Natriuret Pep Total Protein Albumin Globulin Albumin/Globulin Ratio Venous Blood Potassium 3.4 L Urine Color Yellow Urine Clarity Hazy Urine pH 7.0 Ur Specific [place] 1.008 Urine Protein 2+ H Urine Glucose (UA) Normal Urine Ketones Negative Urine Blood 1+ H Urine Nitrate Negative Urine Bilirubin Negative Urine Urobilinogen Normal Ur Leukocyte Esterase 3+ H Urine WBC (Auto) 101 H Urine RBC (Auto) 10 H Ur Squamous Epith Cells 2 Urine Bacteria Rare Urine Yeast (Budding) Occ H 06/25/17 06/25/17 06/25/17 06:16 07:59 07:59 WBC RBC Hgb Hct MCV MCH MCHC RDW Plt Count MPV Neut % (Auto) Lymph % (Auto) [place] % (Auto) Eos % (Auto) Baso % (Auto) Neut # (Auto) Lymph # (Auto) [place] # (Auto) Eos # (Auto) Baso # (Auto) Neutrophils % (Manual) Band Neutrophils % Lymphocytes % (Manual) Monocytes % (Manual) Eosinophils % (Manual) Platelet Estimate Hypochromasia (manual) Poikilocytosis (manual Anisocytosis (manual) PT INR APTT pO2 VBG pH VBG pCO2 VBG HCO3 VBG Total CO2 VBG O2 Sat (Calc) VBG Base Excess VBG Potassium Glucose Lactate Sodium Potassium Chloride Carbon Dioxide Anion Gap BUN Creatinine Est GFR ( Amer) Est GFR (Non-Af Amer) POC Glucose (mg/dL) 140 H Random Glucose Calcium Iron < 10 L TIBC 259 % Saturation 4.0 L Total Bilirubin AST ALT Alkaline Phosphatase Total Creatine Kinase 27 L CK-MB (Mass) 1.11 Troponin I 0.2280 H* NT-Pro-B Natriuret Pep Total Protein Albumin Globulin Albumin/Globulin Ratio Venous Blood Potassium Urine Color Urine Clarity Urine pH Ur Specific [place] Urine Protein Urine Glucose (UA) Urine Ketones Urine Blood Urine Nitrate Urine Bilirubin Urine Urobilinogen Ur Leukocyte Esterase Urine WBC (Auto) Urine RBC (Auto) Ur Squamous Epith Cells Urine Bacteria Urine Yeast (Budding) 04/01/18 08:28 WBC RBC Hgb Hct MCV MCH MCHC RDW Plt Count MPV Neut % (Auto) Lymph % (Auto) [place] % (Auto) Eos % (Auto) Baso % (Auto) Neut # (Auto) Lymph # (Auto) [place] # (Auto) Eos # (Auto) Baso # (Auto) Neutrophils % (Manual) Band Neutrophils % Lymphocytes % (Manual) Monocytes % (Manual) Eosinophils % (Manual) Platelet Estimate Hypochromasia (manual) Poikilocytosis (manual Anisocytosis (manual) PT INR APTT pO2 VBG pH VBG pCO2 VBG HCO3 VBG Total CO2 VBG O2 Sat (Calc) VBG Base Excess VBG Potassium Glucose Lactate Sodium Potassium Chloride Carbon Dioxide Anion Gap BUN Creatinine Est GFR ( Amer) Est GFR (Non-Af Amer) POC Glucose (mg/dL) Random Glucose Calcium Iron TIBC % Saturation Total Bilirubin AST ALT Alkaline Phosphatase Total Creatine Kinase CK-MB (Mass) Troponin I NT-Pro-B Natriuret Pep 3830 H Total Protein Albumin Globulin Albumin/Globulin Ratio Venous Blood Potassium Urine Color Urine Clarity Urine pH Ur Specific [place] Urine Protein Urine Glucose (UA) Urine Ketones Urine Blood Urine Nitrate Urine Bilirubin Urine Urobilinogen Ur Leukocyte Esterase Urine WBC (Auto) Urine RBC (Auto) Ur Squamous Epith Cells Urine Bacteria Urine Yeast (Budding)
--- NOTE | 2017-06-25 11:48 | RAD ---
PROCEDURE: Chest dated 06/24/2017 HISTORY: Shortness of breath COMPARISON: None available. FINDINGS: LUNGS: Poor inspiration with low lung volumes, crowded bronchovascular markings and mild bibasilar atelectasis. Central pulmonary vasculature is slightly increased which may also be due to low lung volumes however mild developing central pulmonary vascular congestion not excluded. PLEURA: No pneumothorax or pleural fluid seen. CARDIOVASCULAR: Cardiomegaly. OSSEOUS STRUCTURES: No significant abnormalities. VISUALIZED UPPER ABDOMEN: Normal. OTHER FINDINGS: None. IMPRESSION: Poor inspiration with low lung volumes, crowded bronchovascular markings and mild bibasilar atelectasis. Central pulmonary vasculature is slightly increased which may also be due to low lung volumes however mild developing central pulmonary vascular congestion not excluded.
[2017-06-26 08:04] LABS: BASO % 0.2 % (0.0-2.0); EOS # 0.1 K/uL (0.0-0.7); EOS % 0.6 % (0.0-4.0); LYMPH # 1.6 K/uL (1.0-4.3); LYMPH % 15.2 % (20.0-40.0); MEAN CELL VOLUME 90.6 fL (81.0-99.0); MEAN CORPUSCULAR HEMOGLOBIN 30.4 pg (27.0-31.0); MEAN CORPUSCULAR HGB CONC 33.6 g/dL (33.0-37.0); MEAN PLATELET VOLUME 10.8 fL (7.2-11.7); MONO # 0.9 K/uL (0.0-0.8); RBC 3.3 Mil/uL (3.80-5.20); RED CELL DISTRIBUTION WIDTH 14.3 % (11.5-14.5); WHITE BLOOD COUNT 10.6 K/uL (4.8-10.8)
[2017-06-26 08:08] LABS: ALB/GLOB RATIO 0.9 (1.0-2.1); ALBUMIN 3.1 g/dL (3.5-5.0); CALCIUM 8.6 mg/dl (8.6-10.4)
[2017-06-26] MEDS: (Novolin R) Insulin Human Regular 100 units/ml vial SC SCH ×4 (08:26→21:27)
[2017-06-26 08:54] LABS: FERRITIN 48.8 ng/mL
[2017-06-26 09:08] LABS: CK-MB 2.01 ng/mL (0.0-3.38); TROPONIN I 0.147 ng/mL (0.00-0.120)
[2017-06-26] MEDS: Saccharomyces Boulardi 250 mg Cap PO SCH ×2 (09:51→17:43)
[2017-06-26] MEDS: (Lantus) Insulin Glargine, Recombinant SC SCH ×2 (09:51→22:15)
[2017-06-26] MEDS ORDERED: Pneumococcal 23-Valent Vaccine IM ONE (10:00)
[2017-06-26] MEDS: Magnesium Sulfate 1 gm in D5W 1 GM/100 ML BAG IVPB SCH ×3 (11:03→14:38)
--- NOTE | 2017-06-26 11:08 | CP.PCM.PN ---
<Aniket Griffiths - Last Filed: 06/26/17 15:12> Subjective - Date & Time of Evaluation Date of Evaluation: 06/26/17 Time of Evaluation: 07:40 - Subjective Subjective: Medicine progress note for Dr. Coleman Patient seen and examined. Patient reports feeling better today. She denies dysuria, chest pain, dyspnea, abdominal pain. However, she does admit to urinary frequency and fevers overnight. Patient in general states that she feels better; however, son at bedside states that the patient is a bit more lethargic than usual. At baseline, the patient does not ambulates much at home due to arthritis. Objective - Vital Signs/Intake and Output Vital Signs (last 24 hours): Temp Pulse Resp BP Pulse Ox 98.9 F 105 H 21 191/80 H 94 L 06/26/17 08:12 06/26/17 08:12 06/26/17 08:12 06/26/17 09:56 06/26/17 08:12 Intake and Output: 06/26/17 06/26/17 06:59 18:59 Intake Total 1040 Output Total 950 Balance 90 - Medications Medications: Current Medications Aspirin (Aspirin Chewable) 81 mg PO DAILY [facility] Last Admin: 06/26/17 09:51 Dose: 81 mg Dextrose (Dextrose 50% Inj) 0 ml IV STAT PRN; Protocol PRN Reason: Hypoglycemia Protocol Dextrose (Glutose 15) 0 gm PO ONCE PRN; Protocol PRN Reason: Hypoglycemia Protocol Enalapril Maleate (Vasotec) 10 mg PO DAILY [facility] Last Admin: 06/26/17 09:56 Dose: 10 mg Glucagon (Glucagen Diagnostic Kit) 0 mg IM STAT PRN; Protocol PRN Reason: Hypoglycemia Protocol Azithromycin 500 mg/ Sodium (Chloride) 250 mls @ 250 mls/hr IVPB DAILY [facility] PRN Reason: Protocol Last Admin: 06/25/17 10:22 Dose: 250 mls/hr Ceftriaxone Sodium 1 gm/ (Sodium Chloride) 100 mls @ 100 mls/hr IVPB DAILY [facility] PRN Reason: Protocol Last Admin: 06/26/17 09:55 Dose: 100 mls/hr Dextrose (Dextrose 5% In Water 1000 Ml) 1,000 mls @ 0 mls/hr IV .Q0M PRN; Protocol; Per Protocol PRN Reason: Hypoglycemia Protocol Sodium Chloride (Sodium Chloride 0.9%) 1,000 mls @ 100 mls/hr IV .Q10H [facility] Last Admin: 06/25/17 17:13 Dose: 100 mls/hr Magnesium Sulfate/Dextrose (Magnesium Sulfate 1 Gm/100 Ml D5w) 1 gm in 100 mls @ 100 mls/hr IVPB Q1H [facility] Stop: 06/26/17 12:44 Insulin Glargine (Lantus) 10 unit SC HS [facility] Last Admin: 06/25/17 21:32 Dose: 10 units Insulin Glargine (Lantus) 22 unit SC DAILY [facility] Last Admin: 06/26/17 09:51 Dose: 22 units Insulin Human Regular (Novolin R) 0 unit SC ACHS [facility] PRN Reason: Protocol Last Admin: 06/26/17 08:26 Dose: Not Given Ondansetron HCl (Zofran Inj) 4 mg IVP Q6 PRN PRN Reason: Nausea/Vomiting Phenazopyridine HCl (Pyridium) 100 mg PO PC [facility] Last Admin: 06/26/17 09:51 Dose: 100 mg Saccharomyces Boulardii (Florastor) 250 mg PO BID [facility] Last Admin: 06/26/17 09:51 Dose: 250 mg Tetrahydrozoline HCl/Zinc Sulfate (Visine 0.05% Opht Soln) 5 ml OD Q6H PRN PRN Reason: Dry eyes - Labs Labs: 06/26/17 07:48 06/26/17 07:48 PT 14.8 SECONDS (9.7-12.2) H 06/24/17 19:30 INR 1.3 06/24/17 19:30 APTT 27 SECONDS (21-34) 06/24/17 19:30 - Constitutional Appears: No Acute Distress - Head Exam Head Exam: ATRAUMATIC, NORMOCEPHALIC - Eye Exam Eye Exam: EOMI, Normal appearance - ENT Exam ENT Exam: Mucous Membranes Moist - Respiratory Exam Respiratory Exam: Clear to Ausculation Bilateral, NORMAL BREATHING PATTERN. absent: Rales, Rhonchi, Wheezes - Cardiovascular Exam Cardiovascular Exam: Tachycardia, REGULAR RHYTHM, +S1, +S2 - GI/Abdominal Exam GI & Abdominal Exam: Soft, Normal Bowel Sounds. absent: Distended, Tenderness - Extremities Exam Extremities Exam: Pedal Edema (bilateral non-pitting) - Back Exam Back Exam: absent: CVA tenderness (L), CVA tenderness (R) - Neurological Exam Neurological Exam: Alert, Awake, Oriented x3 - Psychiatric Exam Psychiatric exam: Anxious - Skin Skin Exam: Dry, Warm Assessment and Plan - Assessment and Plan (Free Text) Plan: UTI (urinary tract infection) Urosepsis On admission: Leukocytosis with bandemia, lactate NORMAL, pH NORMAL On admission: UA: 2+ protein, 1+ blood, 3+ leuk esterase, 101 wbc, 10 rbc Blood Cx and Urine Cx negative Procalcitonin 23.24 f/u repeat urinalysis and urine cultures Azithromycin 500mg IVP QD Ceftriaxone 1g IVP QD Phenazopyridine 100mg PO PC Zofran 4mg IVP Q6H PRN for n/v NS @ 100cc/hr Elevated Troponins Cardiology consult, Dr Reed. Will follow recs. No chest pain or dyspnea Troponins likely elevated due to demand ischemia from urosepsis Last troponin was downtrendimg f/u ECHO Insulin dependent diabetes mellitus Accuchecks ACHS Hemoglobin A1c 6.6 Meds: Continue home insulin regimen Glargine 10u HS and Glargine 22u AM (confirmed with pharmacy that this is not an unusual scheduling) HOLD home metformin 850mg PO BID Hypoglycemia protocol RISS - medium dose Visine for dry eyes 2/2 to recent eye surgery (cataracts) HTN (hypertension) Continue home med captopril/HCTZ 50/25mg PO QD (substitute with in house enalapril 10mg) Anemia Normocytic anemia On iron studies, patient is low iron and low % saturation Monitor Prophylactic measure Consistent carb vegan diet Continue home med ASA 81mg PO QD Lovenox 40 mg SC daily Discussed with Dr. Virginia Griffiths PGY-1 <Jamari Coleman H - Last Filed: 06/26/17 15:52> Objective - Vital Signs/Intake and Output Vital Signs (last 24 hours): Temp Pulse Resp BP Pulse Ox 98.9 F 105 H 21 191/80 H 94 L 06/26/17 08:12 06/26/17 08:12 06/26/17 08:12 06/26/17 09:56 06/26/17 08:12 Intake and Output: 06/26/17 06/26/17 06:59 18:59 Intake Total 1040 502 Output Total 950 Balance 90 502 - Medications Medications: Current Medications Acetaminophen (Tylenol 325mg Tab) 650 mg PO Q6 PRN PRN Reason: Fever >100.4 F Aspirin (Aspirin Chewable) 81 mg PO DAILY [facility] Last Admin: 06/26/17 09:51 Dose: 81 mg Dextrose (Dextrose 50% Inj) 0 ml IV STAT PRN; Protocol PRN Reason: Hypoglycemia Protocol Dextrose (Glutose 15) 0 gm PO ONCE PRN; Protocol PRN Reason: Hypoglycemia Protocol Enalapril Maleate (Vasotec) 10 mg PO DAILY [facility] Last Admin: 06/26/17 09:56 Dose: 10 mg Enoxaparin Sodium (Lovenox) 40 mg SC DAILY [facility] Glucagon (Glucagen Diagnostic Kit) 0 mg IM STAT PRN; Protocol PRN Reason: Hypoglycemia Protocol Azithromycin 500 mg/ Sodium (Chloride) 250 mls @ 250 mls/hr IVPB DAILY [facility] PRN Reason: Protocol Last Admin: 06/26/17 11:46 Dose: 250 mls/hr Ceftriaxone Sodium 1 gm/ (Sodium Chloride) 100 mls @ 100 mls/hr IVPB DAILY [facility] PRN Reason: Protocol Last Admin: 06/26/17 09:55 Dose: 100 mls/hr Dextrose (Dextrose 5% In Water 1000 Ml) 1,000 mls @ 0 mls/hr IV .Q0M PRN; Protocol; Per Protocol PRN Reason: Hypoglycemia Protocol Sodium Chloride (Sodium Chloride 0.9%) 1,000 mls @ 100 mls/hr IV .Q10H [facility] Last Admin: 06/25/17 17:13 Dose: 100 mls/hr Insulin Glargine (Lantus) 10 unit SC HS [facility] Last Admin: 06/25/17 21:32 Dose: 10 units Insulin Glargine (Lantus) 22 unit SC DAILY [facility] Last Admin: 06/26/17 09:51 Dose: 22 units Insulin Human Regular (Novolin R) 0 unit SC ACHS [facility] PRN Reason: Protocol Last Admin: 06/26/17 12:07 Dose: 3 unit Ondansetron HCl (Zofran Inj) 4 mg IVP Q6 PRN PRN Reason: Nausea/Vomiting Phenazopyridine HCl (Pyridium) 100 mg PO PC [facility] Last Admin: 06/26/17 13:52 Dose: 100 mg Saccharomyces Boulardii (Florastor) 250 mg PO BID [facility] Last Admin: 06/26/17 09:51 Dose: 250 mg Tetrahydrozoline HCl/Zinc Sulfate (Visine 0.05% Opht Soln) 5 ml OD Q6H PRN PRN Reason: Dry eyes - Labs Labs: 06/26/17 07:48 06/26/17 07:48 PT 14.8 SECONDS (9.7-12.2) H 06/24/17 19:30 INR 1.3 06/24/17 19:30 APTT 27 SECONDS (21-34) 06/24/17 19:30 Attending/Attestation - Attestation I have personally seen and examined this patient.: Yes I have fully participated in the care of the patient.: Yes I have reviewed all pertinent clinical information, including history, physical exam and plan: Yes Notes (Text): Medical attending: Patient was seen and examined by me with the medical residents. The patient had family members in room as well. He wanted to stay overnight however that may depend on nursing staff. The patient reported feeling ok. We need to repeat a CXRAY to assess if fluid overload as she is getting IVF The WBC is decreased, also left shift decreased - however she still had a fever last night. The blood and urine cultures have been negative 24hrs. However it needs to be pointed out that the blood and urine cultures were not drawn until after the patient had IV abx started. thank you Jamari Coleman
[2017-06-26] MEDS: Azithromycin 500 MG in Sodium Chloride 0.9% 250 ML IVPB SCH (11:46)
--- NOTE | 2017-06-26 11:52 | CARD ---
APPROVED REPORT EKG Measurement Heart [id number] <Conclusion> Normal sinus rhythm Normal ECG
--- NOTE | 2017-06-26 12:02 | RAD ---
Chest x-ray single frontal view History: Fluid overload. Comparison: 06/24/2017 Findings: Moderate venous congestion with right hilar prominence. Right peritracheal prominence likely represents prominent vasculature. Left basilar airspace opacity with small left pleural effusion. Blunted right costophrenic angle. Cardiomegaly. Right hilar prominence. Tortuous aorta. Calcification at the aortic knob. Degenerative changes in the spine and shoulders. Impression: Moderate venous congestion with right hilar prominence. Right peritracheal prominence likely represents prominent vasculature. Left basilar airspace opacity with small left pleural effusion. Blunted right costophrenic angle. Cardiomegaly. Right hilar prominence. Tortuous aorta. Calcification at the aortic knob.
[2017-06-26 20:11] LABS: SQUAMOUS EPITHIAL < 1 /hpf (0-5); URINE BACTERIA OCC (<OCC); URINE BILIRUBIN NEGATIVE (NEGATIVE); URINE BLOOD 1+ (NEGATIVE); URINE CLARITY Clear (Clear); URINE GLUCOSE (UA) NORMAL (Normal); URINE LEUKOCYTE ESTERASE NEG Leu/uL (Negative); URINE PROTEIN 1+ mg/dL (NEGATIVE)
[2017-06-26 20:14] LABS: URINE COLOR YELLOW (YELLOW)
--- NOTE | 2017-06-26 21:06 | CARD ---
APPROVED REPORT EKG Measurement Heart [id number] <Conclusion> Sinus tachycardia Otherwise normal ECG
[2017-06-26] MEDS ORDERED: Enoxaparin 40 mg Syringe SC ONE (22:15)
[2017-06-27 06:16] LABS: BASO % 0.3 % (0.0-2.0); EOS # 0.1 K/uL (0.0-0.7); EOS % 1.5 % (0.0-4.0); HEMOGLOBIN 10.4 g/dL (11.0-16.0); LYMPH # 1.8 K/uL (1.0-4.3); LYMPH % 19.6 % (20.0-40.0); MEAN CELL VOLUME 89.6 fL (81.0-99.0); MEAN CORPUSCULAR HEMOGLOBIN 30.3 pg (27.0-31.0); MEAN CORPUSCULAR HGB CONC 33.9 g/dL (33.0-37.0); MEAN PLATELET VOLUME 10.5 fL (7.2-11.7); MONO # 0.8 K/uL (0.0-0.8); NEUT # 6.6 K/uL (1.8-7.0); NEUT % 69.6 % (50.0-75.0); RBC 3.44 Mil/uL (3.80-5.20); RED CELL DISTRIBUTION WIDTH 14.4 % (11.5-14.5); WHITE BLOOD COUNT 9.4 K/uL (4.8-10.8)
[2017-06-27 06:34] LABS: ALBUMIN 3.3 g/dL (3.5-5.0); CALCIUM 8.7 mg/dl (8.6-10.4)
[2017-06-27] MEDS ORDERED: Potassium Chloride 20 mEq/15 ml LIQ UD PO ONE (07:08)
--- NOTE | 2017-06-27 07:14 | CP.PCM.PN ---
Subjective - Date & Time of Evaluation Date of Evaluation: 06/27/17 Time of Evaluation: 07:20 - Subjective Subjective: Medicine progress note for Dr. Coleman Patient seen and examined. Objective - Vital Signs/Intake and Output Vital Signs (last 24 hours): Temp Pulse Resp BP Pulse Ox 99.0 F 89 20 166/82 H 96 06/26/17 23:11 06/27/17 04:08 06/26/17 23:11 06/26/17 23:11 06/26/17 23:11 - Medications Medications: Current Medications Acetaminophen (Tylenol 325mg Tab) 650 mg PO Q6 PRN PRN Reason: Fever >100.4 F Aspirin (Aspirin Chewable) 81 mg PO DAILY [facility] Last Admin: 06/26/17 09:51 Dose: 81 mg Dextrose (Dextrose 50% Inj) 0 ml IV STAT PRN; Protocol PRN Reason: Hypoglycemia Protocol Dextrose (Glutose 15) 0 gm PO ONCE PRN; Protocol PRN Reason: Hypoglycemia Protocol Enalapril Maleate (Vasotec) 10 mg PO DAILY [facility] Last Admin: 06/26/17 09:56 Dose: 10 mg Enoxaparin Sodium (Lovenox) 40 mg SC DAILY [facility] Glucagon (Glucagen Diagnostic Kit) 0 mg IM STAT PRN; Protocol PRN Reason: Hypoglycemia Protocol Azithromycin 500 mg/ Sodium (Chloride) 250 mls @ 250 mls/hr IVPB DAILY [facility] PRN Reason: Protocol Last Admin: 06/26/17 11:46 Dose: 250 mls/hr Ceftriaxone Sodium 1 gm/ (Sodium Chloride) 100 mls @ 100 mls/hr IVPB DAILY [facility] PRN Reason: Protocol Last Admin: 06/26/17 09:55 Dose: 100 mls/hr Dextrose (Dextrose 5% In Water 1000 Ml) 1,000 mls @ 0 mls/hr IV .Q0M PRN; Protocol; Per Protocol PRN Reason: Hypoglycemia Protocol Magnesium Sulfate/Dextrose (Magnesium Sulfate 1 Gm/100 Ml D5w) 1 gm in 100 mls @ 300 mls/hr IVPB Q30M [facility] Stop: 06/27/17 08:04 Insulin Glargine (Lantus) 10 unit SC HS [facility] Last Admin: 06/26/17 22:15 Dose: 10 units Insulin Glargine (Lantus) 22 unit SC DAILY [facility] Last Admin: 06/26/17 09:51 Dose: 22 units Insulin Human Regular (Novolin R) 0 unit SC ACHS [facility] PRN Reason: Protocol Last Admin: 06/26/17 21:27 Dose: Not Given Ondansetron HCl (Zofran Inj) 4 mg IVP Q6 PRN PRN Reason: Nausea/Vomiting Phenazopyridine HCl (Pyridium) 100 mg PO PC [facility] Last Admin: 06/26/17 17:43 Dose: 100 mg Potassium Chloride (Potassium Chloride Oral Soln) 40 meq PO ONCE ONE Stop: 06/27/17 07:09 Saccharomyces Boulardii (Florastor) 250 mg PO BID [facility] Last Admin: 06/26/17 17:43 Dose: 250 mg Tetrahydrozoline HCl/Zinc Sulfate (Visine 0.05% Opht Soln) 5 ml OD Q6H PRN PRN Reason: Dry eyes - Labs Labs: 06/27/17 06:08 06/27/17 06:08 PT 14.8 SECONDS (9.7-12.2) H 06/24/17 19:30 INR 1.3 06/24/17 19:30 APTT 27 SECONDS (21-34) 06/24/17 19:30 - Additional Findings Additional findings: - Constitutional Appears: No Acute Distress - Head Exam Head Exam: ATRAUMATIC, NORMOCEPHALIC - Eye Exam Eye Exam: EOMI, Normal appearance - ENT Exam ENT Exam: Mucous Membranes Moist - Respiratory Exam Respiratory Exam: Clear to Ausculation Bilateral, NORMAL BREATHING PATTERN. absent: Rales, Rhonchi, Wheezes - Cardiovascular Exam Cardiovascular Exam: Tachycardia, REGULAR RHYTHM, +S1, +S2 - GI/Abdominal Exam GI & Abdominal Exam: Soft, Normal Bowel Sounds. absent: Distended, Tenderness - Extremities Exam Extremities Exam: Pedal Edema (bilateral non-pitting) - Back Exam Back Exam: absent: CVA tenderness (L), CVA tenderness (R) - Neurological Exam Neurological Exam: Alert, Awake, Oriented x3 - Psychiatric Exam Psychiatric exam: Anxious - Skin Skin Exam: Dry, Warm Assessment and Plan - Assessment and Plan (Free Text) Plan: UTI (urinary tract infection) Urosepsis On admission: Leukocytosis with bandemia, lactate NORMAL, pH NORMAL On admission: UA: 2+ protein, 1+ blood, 3+ leuk esterase, 101 wbc, 10 rbc Blood Cx and Urine Cx negative Procalcitonin 23.24 f/u repeat urinalysis and urine cultures Azithromycin 500mg IVP QD Ceftriaxone 1g IVP QD Phenazopyridine 100mg PO PC Zofran 4mg IVP Q6H PRN for n/v NS @ 100cc/hr Elevated Troponins Cardiology consult, Dr Reed. Will follow recs. No chest pain or dyspnea Troponins likely elevated due to demand ischemia from urosepsis Last troponin was downtrendimg f/u ECHO Insulin dependent diabetes mellitus Accuchecks ACHS Hemoglobin A1c 6.6 Meds: Continue home insulin regimen Glargine 10u HS and Glargine 22u AM (confirmed with pharmacy that this is not an unusual scheduling) HOLD home metformin 850mg PO BID Hypoglycemia protocol RISS - medium dose Visine for dry eyes 2/2 to recent eye surgery (cataracts) HTN (hypertension) Continue home med captopril/HCTZ 50/25mg PO QD (substitute with in house enalapril 10mg) Anemia Normocytic anemia On iron studies, patient is low iron and low % saturation Monitor Prophylactic measure Consistent carb vegan diet Continue home med ASA 81mg PO QD Lovenox 40 mg SC daily
[2017-06-27] MEDS: Magnesium Sulfate 1 gm in D5W 1 GM/100 ML BAG IVPB SCH ×2 (07:55→09:18)
[2017-06-27] MEDS: (Novolin R) Insulin Human Regular 100 units/ml vial SC SCH ×3 (08:03→17:05)
[2017-06-27] MEDS: (Lantus) Insulin Glargine, Recombinant SC SCH (09:18)
[2017-06-27] MEDS: Saccharomyces Boulardi 250 mg Cap PO SCH ×2 (09:19→17:46)
[2017-06-27] MEDS ORDERED: Enoxaparin 40 mg Syringe SC SCH (10:00)
[2017-06-27] MEDS: Azithromycin 500 MG in Sodium Chloride 0.9% 250 ML IVPB SCH (11:12)
--- NOTE | 2017-06-27 14:41 | CP.PCM.DIS ---
<Aniket Griffiths - Last Filed: 06/27/17 15:33> Provider - Provider Date of Admission: 06/24/17 20:48 Attending physician: Jamari Coleman DO Primary care physician: Dr. Jose Marcos Consults: Cardiology: Dr. Reed Time Spent in preparation of Discharge (in minutes): 45 Diagnosis - Discharge Diagnosis (1) Sepsis due to urinary tract infection Status: Acute Priority: High (2) HTN (hypertension) Status: Chronic Priority: Low (3) Insulin dependent diabetes mellitus Status: Chronic Priority: Low Hospital Course - Lab Results Lab Results: Micro Results 06/24/17 19:08 Blood Blood Culture - Preliminary NO GROWTH AFTER 48 HOURS 06/24/17 19:08 Blood Blood Culture - Preliminary NO GROWTH AFTER 48 HOURS 06/25/17 10:00 Urine,Clean Catch Urine Culture - Final No Growth (<1,000 CFU/ML) Most Recent Lab Values WBC 9.4 K/uL (4.8-10.8) 06/27/17 06:08 RBC 3.44 Mil/uL (3.80-5.20) L 06/27/17 06:08 Hgb 10.4 g/dL (11.0-16.0) L 06/27/17 06:08 Hct 30.8 % (34.0-47.0) L 06/27/17 06:08 MCV 89.6 fL (81.0-99.0) 06/27/17 06:08 MCH 30.3 pg (27.0-31.0) 06/27/17 06:08 MCHC 33.9 g/dL (33.0-37.0) 06/27/17 06:08 RDW 14.4 % (11.5-14.5) 06/27/17 06:08 Plt Count 239 K/uL (130-400) 06/27/17 06:08 MPV 10.5 fL (7.2-11.7) 06/27/17 06:08 Neut % (Auto) 69.6 % (50.0-75.0) 06/27/17 06:08 Lymph % (Auto) 19.6 % (20.0-40.0) L 06/27/17 06:08 Cabell % (Auto) 9.0 % (0.0-10.0) 06/27/17 06:08 Eos % (Auto) 1.5 % (0.0-4.0) 06/27/17 06:08 Baso % (Auto) 0.3 % (0.0-2.0) 06/27/17 06:08 Neut # (Auto) 6.6 K/uL (1.8-7.0) 06/27/17 06:08 Lymph # (Auto) 1.8 K/uL (1.0-4.3) 06/27/17 06:08 Cabell # (Auto) 0.8 K/uL (0.0-0.8) 06/27/17 06:08 Eos # (Auto) 0.1 K/uL (0.0-0.7) 06/27/17 06:08 Baso # (Auto) 0.0 K/uL (0.0-0.2) 06/27/17 06:08 Neutrophils % (Manual) 74 % (50-75) 06/24/17 19:30 Band Neutrophils % 13 % (0-2) H* 06/24/17 19:30 Lymphocytes % (Manual) 11 % (20-40) L 06/24/17 19:30 Monocytes % (Manual) 1 % (0-10) 06/24/17 19:30 Eosinophils % (Manual) 1 % (0-4) 06/24/17 19:30 Platelet Estimate Normal (NORMAL) 06/24/17 19:30 Hypochromasia (manual) Slight 06/24/17 19:30 Poikilocytosis (manual Slight 06/24/17 19:30 Anisocytosis (manual) Slight 06/24/17 19:30 Retic Count 0.9 % (0.5-1.5) 06/26/17 07:48 PT 14.8 SECONDS (9.7-12.2) H 06/24/17 19:30 INR 1.3 06/24/17 19:30 APTT 27 SECONDS (21-34) 06/24/17 19:30 pO2 38 mm/Hg (30-55) 06/24/17 20:59 VBG pH 7.38 (7.32-7.43) 06/24/17 20:59 VBG pCO2 41 mmHg (40-60) 06/24/17 20:59 VBG HCO3 23.6 mmol/L 06/24/17 20:59 VBG Total CO2 25.6 mmol/L (22-28) 06/24/17 20:59 VBG O2 Sat (Calc) 78.2 % (40-65) H 06/24/17 20:59 VBG Base Excess -0.8 mmol/L (0.0-2.0) L 06/24/17 20:59 VBG Potassium 3.4 mmol/L (3.6-5.2) L 06/24/17 20:59 Sodium 134.0 mmol/l (132-148) 06/24/17 20:59 Chloride 103.0 mmol/L (98-107) 06/24/17 20:59 Glucose 169 mg/dl (65-105) H 06/24/17 20:59 Lactate 1.8 mmol/L (0.7-2.1) 06/24/17 20:59 Sodium 140 mmol/L (132-148) 06/27/17 06:08 Potassium 3.0 mmol/L (3.6-5.2) L 06/27/17 06:08 Chloride 98 mmol/L (98-107) 06/27/17 06:08 Carbon Dioxide 30 mmol/L (22-30) 06/27/17 06:08 Anion Gap 16 (10-20) 06/27/17 06:08 BUN 12 mg/dL (7-17) 06/27/17 06:08 Creatinine 1.1 mg/dL (0.7-1.2) 06/27/17 06:08 Est GFR ( Amer) 59 06/27/17 06:08 Est GFR (Non-Af Amer) 49 06/27/17 06:08 POC Glucose (mg/dL) 303 mg/dL (65-110) H 06/27/17 11:21 Random Glucose 105 mg/dL (65-105) 06/27/17 06:08 Hemoglobin A1c 6.6 % (4.2-6.5) H 06/26/17 07:48 Calcium 8.7 mg/dl (8.6-10.4) 06/27/17 06:08 Phosphorus 4.7 mg/dL (2.5-4.5) H 06/27/17 06:08 Magnesium 1.7 mg/dL (1.6-2.3) 06/27/17 06:08 Iron < 10 ug/dL (37-170) L 06/25/17 07:59 TIBC 259 ug/dL (250-450) 06/25/17 07:59 % Saturation 3.83 (20-55) L 06/26/17 07:48 Ferritin 48.8 ng/mL 06/26/17 07:48 Total Bilirubin 0.8 mg/dL (0.2-1.3) 06/27/17 06:08 AST 24 U/L (14-36) 06/27/17 06:08 ALT 17 U/L (9-52) 06/27/17 06:08 Alkaline Phosphatase 115 U/L (38-126) 06/27/17 06:08 Total Creatine Kinase 220 U/L (30-135) H 06/26/17 07:48 CK-MB (Mass) 2.01 ng/mL (0.0-3.38) 06/26/17 07:48 Troponin I 0.1470 ng/mL (0.00-0.120) H* 06/26/17 07:48 NT-Pro-B Natriuret Pep 3830 pg/mL (0-900) H 06/25/17 08:28 Total Protein 6.7 g/dL (6.3-8.3) 06/27/17 06:08 Albumin 3.3 g/dL (3.5-5.0) L 06/27/17 06:08 Globulin 3.4 gm/dL (2.2-3.9) 06/27/17 06:08 Albumin/Globulin Ratio 1.0 (1.0-2.1) 06/27/17 06:08 Triglycerides 119 mg/dL (0-149) 06/26/17 07:48 Cholesterol 117 mg/dL (0-199) 06/26/17 07:48 LDL Cholesterol Direct 67 mg/dL (0-129) 06/26/17 07:48 HDL Cholesterol 22 mg/dL (30-70) L 06/26/17 07:48 Procalcitonin 23.24 NG/ML (0.19-0.49) H 06/26/17 07:48 Free T4 1.54 ng/dL (0.78-2.19) 06/26/17 07:48 TSH 3rd Generation 3.27 mIU/L (0.46-4.68) 06/26/17 07:48 Venous Blood Potassium 3.4 mmol/L (3.6-5.2) L 06/24/17 20:59 Urine Color Yellow (YELLOW) 06/26/17 19:57 Urine Clarity Clear (Clear) 06/26/17 19:57 Urine pH 5.0 (5.0-8.0) 06/26/17 19:57 Ur Specific Riggins 1.005 (1.003-1.030) 06/26/17 19:57 Urine Protein 1+ mg/dL (NEGATIVE) H 06/26/17 19:57 Urine Glucose (UA) Normal mg/dL (Normal) 06/26/17 19:57 Urine Ketones Negative mg/dL (NEGATIVE) 06/26/17 19:57 Urine Blood 1+ (NEGATIVE) H 06/26/17 19:57 Urine Nitrate Positive (NEGATIVE) H 06/26/17 19:57 Urine Bilirubin Negative (NEGATIVE) 06/26/17 19:57 Urine Urobilinogen 2.0 mg/dL (0.2-1.0) H 06/26/17 19:57 Ur Leukocyte Esterase Neg Ed/uL (Negative) 06/26/17 19:57 Urine WBC (Auto) 101 /hpf (0-5) H 06/24/17 19:31 Urine RBC (Auto) 11 /hpf (0-3) H 06/26/17 19:57 Ur Squamous Epith Cells < 1 /hpf (0-5) 06/26/17 19:57 Urine Bacteria Occ (<OCC) H 06/26/17 19:57 Urine Yeast (Budding) Occ /hpf (NEGATIVE) H 06/24/17 19:31 Stool Occult Blood Negative (NEGATIVE) 06/26/17 14:03 - Hospital Course Hospital Course: Initial Note: "Mrs Pascal is a 72 year old egyption female with a past medical history of insulin dependent DM2, diabetic retinopathy, glaucoma, HTN, OA, who presents to [facility] because she's had dysuria for the past 1 week. Associated symptoms include nausea, lethargy, fever, chills, and loss of appetite. She went to a doctor yesterday morning who prescribed her abx, which she took. However, later in the day her sons were concerned as she was very weak and brought her in to [facility] ER. Initial vitals in the ED were confirmatory for sepsis. She denied chest pain, shortness of breath, diarrhea, focal deficits, bleeding, suprapubic pain, abdominal pain." Hospital Course: Patient admitted due to sepsis from UTI. Urinalysis showed evidence of UTI with nitrates and leukocyte esterase. Patient was treated with IV Azithromycin and Ceftriaxone since admission. Urine cultures came back negative likely due to the fact that they were drawn after the patient had multiple runs of IV antibiotics. Patient with elevated troponins likely due to demand ischemia from the sepsis. They downtrended with the third troponin. No acute intervention from cardiology was indicated. There was also suspicion for pneumonia which was ruled out with CT imaging. Patient showed clinical improvement and was afebrile for the past 24 hours. Patient discharged with four days of Augmentin 875-125 mg PO BID to complete treatment for UTI. Patient seen by physical therapy who recommended rolling walker and home with home services. Prescription for the rolling walker was given, but per case management team, they are unable to arrange for home services since her insurance is still [employer] insurance. This is a summary of the patient's hospitalization. For more information, refer to the medical records. Discharge Exam - Additional Findings Additional findings: - Constitutional Appears: No Acute Distress - Head Exam Head Exam: ATRAUMATIC, NORMOCEPHALIC - Eye Exam Eye Exam: EOMI, Normal appearance - ENT Exam ENT Exam: Mucous Membranes Moist - Respiratory Exam Respiratory Exam: Clear to Auscultation Bilateral, NORMAL BREATHING PATTERN. absent: Rales, Rhonchi, Wheezes - Cardiovascular Exam Cardiovascular Exam: Tachycardia, REGULAR RHYTHM, +S1, +S2 - GI/Abdominal Exam GI & Abdominal Exam: Soft, Normal Bowel Sounds. absent: Distended, Tenderness - Extremities Exam Extremities Exam: Pedal Edema (bilateral non-pitting) - Back Exam Back Exam: absent: CVA tenderness (L), CVA tenderness (R) - Neurological Exam Neurological Exam: Alert, Awake, Oriented x3 - Psychiatric Exam Psychiatric exam: Normal affect, Normal mood - Skin Skin Exam: Dry, Warm Discharge Plan - Discharge Medications Prescriptions: Amoxicillin/Clavulanate [Augmentin 875 MG-125 MG] 1 tab PO BID #8 tab - Follow Up Plan Condition: STABLE Disposition: HOME/ ROUTINE Instructions: Heart Healthy Diet, Urinary Tract Infection, Adult (DC), Carbohydrate Counting Diet, Diabetes Diet , Amoxicillin and Clavulanate, Hypertension (DC) Additional Instructions: Please take Augmentin 875/125 mg twice a day for 4 days. Please follow up with your primary care provider within 1 week. If you cannot provide one, the information for the clinic in the [facility] is provided in your paperwork. If there are any new or worsening symptoms, please go to the nearest emergency room. Referrals: [facility] [Outside] <Jamari Coleman - Last Filed: 06/27/17 15:52> Provider - Provider Date of Admission: 06/24/17 20:48 Attending physician: Jamari Coleman DO Hospital Course - Lab Results Lab Results: Micro Results 06/24/17 19:08 Blood Blood Culture - Preliminary NO GROWTH AFTER 48 HOURS 06/24/17 19:08 Blood Blood Culture - Preliminary NO GROWTH AFTER 48 HOURS 06/25/17 10:00 Urine,Clean Catch Urine Culture - Final No Growth (<1,000 CFU/ML) Most Recent Lab Values WBC 9.4 K/uL (4.8-10.8) 06/27/17 06:08 RBC 3.44 Mil/uL (3.80-5.20) L 06/27/17 06:08 Hgb 10.4 g/dL (11.0-16.0) L 06/27/17 06:08 Hct 30.8 % (34.0-47.0) L 06/27/17 06:08 MCV 89.6 fL (81.0-99.0) 06/27/17 06:08 MCH 30.3 pg (27.0-31.0) 06/27/17 06:08 MCHC 33.9 g/dL (33.0-37.0) 06/27/17 06:08 RDW 14.4 % (11.5-14.5) 06/27/17 06:08 Plt Count 239 K/uL (130-400) 06/27/17 06:08 MPV 10.5 fL (7.2-11.7) 06/27/17 06:08 Neut % (Auto) 69.6 % (50.0-75.0) 06/27/17 06:08 Lymph % (Auto) 19.6 % (20.0-40.0) L 06/27/17 06:08 Cabell % (Auto) 9.0 % (0.0-10.0) 06/27/17 06:08 Eos % (Auto) 1.5 % (0.0-4.0) 06/27/17 06:08 Baso % (Auto) 0.3 % (0.0-2.0) 06/27/17 06:08 Neut # (Auto) 6.6 K/uL (1.8-7.0) 06/27/17 06:08 Lymph # (Auto) 1.8 K/uL (1.0-4.3) 06/27/17 06:08 Cabell # (Auto) 0.8 K/uL (0.0-0.8) 06/27/17 06:08 Eos # (Auto) 0.1 K/uL (0.0-0.7) 06/27/17 06:08 Baso # (Auto) 0.0 K/uL (0.0-0.2) 06/27/17 06:08 Neutrophils % (Manual) 74 % (50-75) 06/24/17 19:30 Band Neutrophils % 13 % (0-2) H* 06/24/17 19:30 Lymphocytes % (Manual) 11 % (20-40) L 06/24/17 19:30 Monocytes % (Manual) 1 % (0-10) 06/24/17 19:30 Eosinophils % (Manual) 1 % (0-4) 06/24/17 19:30 Platelet Estimate Normal (NORMAL) 06/24/17 19:30 Hypochromasia (manual) Slight 06/24/17 19:30 Poikilocytosis (manual Slight 06/24/17 19:30 Anisocytosis (manual) Slight 06/24/17 19:30 Retic Count 0.9 % (0.5-1.5) 06/26/17 07:48 PT 14.8 SECONDS (9.7-12.2) H 06/24/17 19:30 INR 1.3 06/24/17 19:30 APTT 27 SECONDS (21-34) 06/24/17 19:30 pO2 38 mm/Hg (30-55) 06/24/17 20:59 VBG pH 7.38 (7.32-7.43) 06/24/17 20:59 VBG pCO2 41 mmHg (40-60) 06/24/17 20:59 VBG HCO3 23.6 mmol/L 06/24/17 20:59 VBG Total CO2 25.6 mmol/L (22-28) 06/24/17 20:59 VBG O2 Sat (Calc) 78.2 % (40-65) H 06/24/17 20:59 VBG Base Excess -0.8 mmol/L (0.0-2.0) L 06/24/17 20:59 VBG Potassium 3.4 mmol/L (3.6-5.2) L 06/24/17 20:59 Sodium 134.0 mmol/l (132-148) 06/24/17 20:59 Chloride 103.0 mmol/L (98-107) 06/24/17 20:59 Glucose 169 mg/dl (65-105) H 06/24/17 20:59 Lactate 1.8 mmol/L (0.7-2.1) 06/24/17 20:59 Sodium 140 mmol/L (132-148) 06/27/17 06:08 Potassium 3.0 mmol/L (3.6-5.2) L 06/27/17 06:08 Chloride 98 mmol/L (98-107) 06/27/17 06:08 Carbon Dioxide 30 mmol/L (22-30) 06/27/17 06:08 Anion Gap 16 (10-20) 06/27/17 06:08 BUN 12 mg/dL (7-17) 06/27/17 06:08 Creatinine 1.1 mg/dL (0.7-1.2) 06/27/17 06:08 Est GFR ( Amer) 59 06/27/17 06:08 Est GFR (Non-Af Amer) 49 06/27/17 06:08 POC Glucose (mg/dL) 303 mg/dL (65-110) H 06/27/17 11:21 Random Glucose 105 mg/dL (65-105) 06/27/17 06:08 Hemoglobin A1c 6.6 % (4.2-6.5) H 06/26/17 07:48 Calcium 8.7 mg/dl (8.6-10.4) 06/27/17 06:08 Phosphorus 4.7 mg/dL (2.5-4.5) H 06/27/17 06:08 Magnesium 1.7 mg/dL (1.6-2.3) 06/27/17 06:08 Iron < 10 ug/dL (37-170) L 06/25/17 07:59 TIBC 259 ug/dL (250-450) 06/25/17 07:59 % Saturation 3.83 (20-55) L 06/26/17 07:48 Ferritin 48.8 ng/mL 06/26/17 07:48 Total Bilirubin 0.8 mg/dL (0.2-1.3) 06/27/17 06:08 AST 24 U/L (14-36) 06/27/17 06:08 ALT 17 U/L (9-52) 06/27/17 06:08 Alkaline Phosphatase 115 U/L (38-126) 06/27/17 06:08 Total Creatine Kinase 220 U/L (30-135) H 06/26/17 07:48 CK-MB (Mass) 2.01 ng/mL (0.0-3.38) 06/26/17 07:48 Troponin I 0.1470 ng/mL (0.00-0.120) H* 06/26/17 07:48 NT-Pro-B Natriuret Pep 3830 pg/mL (0-900) H 06/25/17 08:28 Total Protein 6.7 g/dL (6.3-8.3) 06/27/17 06:08 Albumin 3.3 g/dL (3.5-5.0) L 06/27/17 06:08 Globulin 3.4 gm/dL (2.2-3.9) 06/27/17 06:08 Albumin/Globulin Ratio 1.0 (1.0-2.1) 06/27/17 06:08 Triglycerides 119 mg/dL (0-149) 06/26/17 07:48 Cholesterol 117 mg/dL (0-199) 06/26/17 07:48 LDL Cholesterol Direct 67 mg/dL (0-129) 06/26/17 07:48 HDL Cholesterol 22 mg/dL (30-70) L 06/26/17 07:48 Procalcitonin 23.24 NG/ML (0.19-0.49) H 06/26/17 07:48 Free T4 1.54 ng/dL (0.78-2.19) 06/26/17 07:48 TSH 3rd Generation 3.27 mIU/L (0.46-4.68) 06/26/17 07:48 Venous Blood Potassium 3.4 mmol/L (3.6-5.2) L 06/24/17 20:59 Urine Color Yellow (YELLOW) 06/26/17 19:57 Urine Clarity Clear (Clear) 06/26/17 19:57 Urine pH 5.0 (5.0-8.0) 06/26/17 19:57 Ur Specific Riggins 1.005 (1.003-1.030) 06/26/17 19:57 Urine Protein 1+ mg/dL (NEGATIVE) H 06/26/17 19:57 Urine Glucose (UA) Normal mg/dL (Normal) 06/26/17 19:57 Urine Ketones Negative mg/dL (NEGATIVE) 06/26/17 19:57 Urine Blood 1+ (NEGATIVE) H 06/26/17 19:57 Urine Nitrate Positive (NEGATIVE) H 06/26/17 19:57 Urine Bilirubin Negative (NEGATIVE) 06/26/17 19:57 Urine Urobilinogen 2.0 mg/dL (0.2-1.0) H 06/26/17 19:57 Ur Leukocyte Esterase Neg Ed/uL (Negative) 06/26/17 19:57 Urine WBC (Auto) 101 /hpf (0-5) H 06/24/17 19:31 Urine RBC (Auto) 11 /hpf (0-3) H 06/26/17 19:57 Ur Squamous Epith Cells < 1 /hpf (0-5) 06/26/17 19:57 Urine Bacteria Occ (<OCC) H 06/26/17 19:57 Urine Yeast (Budding) Occ /hpf (NEGATIVE) H 06/24/17 19:31 Stool Occult Blood Negative (NEGATIVE) 06/26/17 14:03 Attending/Attestation - Attestation I have personally seen and examined this patient.: Yes I have fully participated in the care of the patient.: Yes I have reviewed all pertinent clinical information, including history, physical exam and plan: Yes Notes (Text): 06/27/17 15:51 Medical attending: Patient was seen and examined by me, agrees the above note by the medical sales. Saw the patient together with medical sales. At this morning family members were not present in the room, usually they are. Today we reviewed her lab work showed that her white blood cell count continues to decline. Her blood cultures have been negative for the past 3 days. Urine cultures have been negative as well. Initially when she came in we were suspecting that the patient had an infection secondary to either UTI or possible pneumonia. A CT scan was done and was negative for infiltrates or a PE. At that time she was very tachycardic, she was running high temperatures repeatedly, and the family members reporting that she looked very weak and lethargic. In the emergency room she had elevated white blood cell count 15, for large left shift 90% neutrophils, as well as very significant bandemia of 13 percent. She had a slight elevation of her troponins. She was evaluated by cardiology, it was felt that these elevations at the troponin was secondary to the patient having infection. She never had concerning EKG changes. Her blood pressure was somewhat on the low side however she responded very well to intravenous fluids and we were able to turn fluids yesterday and her blood pressure has been stable. Since then her blood work is improved greatly. She's been on azithromycin and Rocephin IV. The family members who've been present at bedside report that she' s been looking much better since admission. thank you Jamari Coleman
[2017-06-27 16:02] VITALS: BP 145/72; PULSE 94; RESP 18; TEMP 98.5; O2SAT 97
--- NOTE | 2017-06-28 11:41 | CARD ---
APPROVED REPORT EXAM: Two-dimensional and M-mode echocardiogram with Doppler and color Doppler. Other Information Quality : GoodRhythm : NSR INDICATION Aortic Valve Disease Mitral Valve Disease RISK FACTORS Hypertension M-Mode DIMENSIONS RVDd1.20 (2.1-3.2cm)Left Atrium (MM)4.82 (2.5-4.0cm) IVSd0.94 (0.7-1.1cm)Aortic Root2.57 (2.2-3.7cm) LVDd4.13 (4.0-5.6cm)Aortic Cusp Exc.1.30 (1.5-2.0cm) PWd1.11 (0.7-1.1cm)FS (%) 34 % LVDs2.73 (2.0-3.8cm)LVEF (%)63 (>50%) Aortic Valve AoV Peak Ihtwczfx952.6cm/Obi Peak GR.12mmHgAI P 1/2 [id number] Mitral Valve MV E Azaxpgxr399.8cm/sMV A Zkkphnyc725.3cm/sMV AXO58to E/A ratio0.9MVA (PHT)2.67cm2 TDI E/Lateral E'0.0E/Medial E'0.0 Tricuspid Valve TR Peak [id number]/sTR Peak Gr.[id number] LEFT VENTRICLE The left ventricle is normal size. There is normal left ventricular wall thickness. The Ejection Fraction is 60-65%. There is normal LV segmental wall motion. The left atrial pressure is mildly elevated. Mildly Transmitral Doppler flow pattern is Grade II-pseudonormal filling dynamics.increased la volume index. RIGHT VENTRICLE The right ventricle is normal size. The right ventricular systolic function is normal. AORTIC VALVE The aortic valve is trileaflet. The aortic valve is mildly calcified. There is trace aortic regurgitation. MITRAL VALVE The mitral valve is sclerotic. Mitral annular calcification is mild. Mitral regurgitation is mild to moderate. TRICUSPID VALVE The tricuspid valve is normal in structure. There is mild tricuspid regurgitation. Right ventricular systolic pressure is estimated at 40 mmHg. There is mild pulmonary hypertension. PULMONIC VALVE The pulmonary valve is normal in structure. GREAT VESSELS The aortic root is normal size. The aortic root displays mild sclerocalcific changes of the aortic root. The IVC is normal in size and collapses >50% with inspiration. PERICARDIAL EFFUSION There is no pericardial effusion. <Conclusion> The left ventricle is normal size. The Ejection Fraction is 60-65%. The left atrial pressure is mildly elevated. Mild mac. Transmitral Doppler flow pattern is Grade II-pseudonormal filling dynamics.increased la volume index. The aortic valve is trileaflet. The aortic valve is mildly calcified. There is trace aortic regurgitation. Mitral regurgitation is mild to moderate. Mitral regurgitation is mild to moderate. There is mild tricuspid regurgitation. Right ventricular systolic pressure is estimated at 40 mmHg. There is mild pulmonary hypertension. The aortic root is normal size. The aortic root displays mild sclerocalcific changes of the aortic root.
--- NOTE | 2017-06-28 13:18 | CARD ---
APPROVED REPORT EKG Measurement Heart [id number] PA [id number] <Conclusion> Normal sinus rhythm
== END 2017-06-27 18:10 | disposition home or self-care (01) | DRG 584 ==
LOC: C.ER 18:03 → C.9E 20:48 → C.3T 22:25 → C.6T 06-25 01:41
PROVIDERS: ADMIT Hospitalist; ATTEND Hospitalist
DX: A41.9 Sepsis, unspecified organism (principal); J18.9 Pneumonia, unspecified organism; E11.319 Type 2 diabetes mellitus with unspecified diabetic retinopathy without macular edema; N39.0 Urinary tract infection, site not specified; D64.9 Anemia, unspecified; E78.00 Pure hypercholesterolemia, unspecified; H40.9 Unspecified glaucoma; I10 Essential (primary) hypertension; I24.8 Other forms of acute ischemic heart disease; M19.90 Unspecified osteoarthritis, unspecified site; Z79.4 Long term (current) use of insulin; Z79.82 Long term (current) use of aspirin